=== PATIENT | female | born 1960 | race Caucasian/White ===

== ENCOUNTER 2019-04-21 08:49 | Inpatient (IN) | payer MEDICARE, OTHER, SELFPAY ==
[2019-04-18 10:53] VITALS: BMI 50.2
[2019-04-21] VITALS (20 sets, daily range): BP systolic 98–145; BP diastolic 49–102; PULSE 69–92; RESP 8–20; TEMP 36.1–37.2; O2SAT 93–100; BMI 50.1
--- NOTE | 2019-04-21 | DI.RAD.S_ITS ---
PROCEDURE: XR LUMBAR SPINE 2-3V INDICATIONS: L4-5 L5-S1 TLIF TECHNIQUE: 2 views of the lumbar spine were acquired. COMPARISON: [facility], [place], L-SPINE 2-3 VIEWS, 01/28/2014, 11:58. [facility], [place], L-SPINE 2-3 VIEWS, 03/26/2013, 18:10. FINDINGS: New pedicle screws at L4, L5, and S1. Intervertebral body spacers at L4-L5 and L5-S1. Hardware is in expected position. IMPRESSION: Satisfactory appearance of the L4-S1 pedicle screws. Dictated by: Kristian Posey M.D. on 04/21/2019 at 15:21 Approved by: Kristian Posey M.D. on 04/21/2019 at 15:27
[2019-04-21] MEDS: LACTATED RINGERS 1,000 ML 42 ML IV ×2 (10:00→13:07)
--- NOTE | 2019-04-21 10:34 | PM.PREOP ---
Pre-operative Note Interval Note History & Physical reviewed/Exam performed by Physician: Yes Changes to H&P: No
[2019-04-21] MEDS: CEFAZOLIN 2 GM/100 ML FROZ.PIGGY IV ×2 (11:10→19:08)
--- NOTE | 2019-04-21 12:00 | SUR.OPER ---
Prone on spine table, head in foam head support, padded chest and pelvic supports, gel pad at knees, and between ankles, lower legs supported by pillows; nipples, genitalia and toes free of pressure, arms secured on foam padded arm boards at <90 degrees abduction. Bed frame padded around abdominal region. Tape over blanket at thigh secured to table.
[2019-04-21] MEDS: BUPIVACAINE 0.25% W/ EPI (PF) 10 ML VIAL 30 ML INJ (12:15)
[2019-04-21] MEDS: BUPIVACAINE LIPOSOME 266 MG/20 ML VIAL INJ (12:16)
--- NOTE | 2019-04-21 15:26 | P.OP_ITS ---
Operative Date/Time/Diagnoses Date of procedure: 04/21/19 Time of procedure: 11:26 Pre-op diagnosis: 1. L4-5, L5-S1 spinal stenosis 2. L4-5, L5-S1 spondylosis with radiculopathy Post-op diagnosis: same Procedure & Clinicians Procedure: 1. L4-5, L5-S1 Postero-lateral and posterior interbody fusion 2. L4-5, L5-S1 interbody cage placement. 3. L4-5, L5-S1 decompressive laminectomy with bilateral facetecomies 4. L4-5, L5-S1 Posterior segmental instrumentation 5. [place] of bone marrow from iliac crest 6. Utilization of microsurgical technique and operating microscope Same procedure as scheduled: Yes Indications: Patient has been having chronic back pain and worsening lumbar radiculopathy. Patient failed multiple conservative management with worsening pain weakness and numbness in her lower extremity. Patient has been having difficulty performing activity of daily living. After discussing risks benefits of treatment options, patient elected proceed with surgery. Surgeon: Kristen Duron Import And Export Clerk: Melody Dc Click Yes if Unassisted: No Anesthesia Type: General Operative Notes Closure Type: primary Specimen(s): none sent Prosthetic devices, grafts, tissues, transplants, or devices: Globus revolve screws, Rise cages Applied: catheter Estimated Blood Loss (mL): 100 Blood products transfused: none Procedure in detail: Patient was seen in the preoperative area. Risks and benefits of the surgery was discussed with the patient. Informed consent was obtained from the patient and placed in the chart. Surgical site was marked. Patient was taken to the operative room. General anesthesia was administered. Prophylactic antibiotic was given to the patient less than 30 min before the incision was made. Patient was placed into a prone position on the Prasad table. Patient's back was then prepped and draped in the sterile fashion. Time- out was performed at this time. Using AP and lateral C-arm imaging the interval between L4-S1 was identified and marked on patient's back. A 2 inch incision 2 in from midline was made on the left side first. The fascia was incised in line with skin incision. Globus MARS retractors was placed inside the incision and docked onto the L4 and L5 lamina. Using microsurgical technique and operating microscope, a L4 and L5 laminectomy and L4-5 L5-S1 facetectomy was performed using a Kerrison rongeur. During the process of decompression more than 75% of bilateral L4-5 L5-S1 facets were removed in order to decompress the spinal canal and the lateral recess. The L4- 5 L5-S1 level was grossly unstable after the decompression was completed and requiring the fusion procedure. The disc space at L4-5, L5-S1 was identified. And a total diskectomy was performed at L4-5, L5-S1 level. The endplates were decorticated using a rasp and shaver. The total diskectomy and decortication was performed at L4-5, L5-S1 level in order to to accomplish a L4-5, L5-S1 fusion. The local bone from the laminectomy and facetectomy was saved for local bone grafting. After the total diskectomy and decortication was completed, Bio4 bone graft material was combined with local bone that was harvested earlier. At this time, a separate skin is incision was made over the iliac crest. A Jamshidi needle was inserted into the iliac crest through a separate skin incision. 5 cc of bone marrow aspiration was obtained through the separate skin incision using a Jamshidi needle from the iliac crest. The bone marrow aspiration was combined with local bone and the Bio4 bone grafting material. The bone grafting material was placed into the L4-5, L5-S1 interbody space along with two cages, one expandable cage at each level. The cages were expanded to their maximum height using the torque limiting screwdriver. At this time a mirror image incision was made on the right side. The fascia was incised in line with the skin incision. Globus MARS retractor was inserted and docked onto the L4-5, L5-S1 posterolateral gutter. Using the power drill, posterior-lateral decortication was performed at L4-5, L5-S1 level until bleeding cortical bone was identified. The remaining bone grafting material was placed into the L4-5 L5-S1 posterior lateral gutter he order to accomplish posterolateral fusion at the L4-5 L5-S1 levels. Using the double C-arm technique, pedicle screws were placed into the L4, L5, S1 pedicles bilaterally. This was done by placing the Jamshidi needle into the pedicles, then placing the guidewires over the Jamshidi needle, and finally placing the cannulated screws over the guidewires bilaterally. After the pedicle screws were placed, 2 titanium rods was locked into the heads of the pedicle screws using locking caps and torque limiting screwdriver. Total 6 pedicles screws were placed. After all the hardware was placed, and confirmed with AP and lateral C-arm imaging, the wound was then irrigated with sterile normal saline and packed with Ray-Nam gauze for 3 min to accomplish hemostasis. After the gauze was removed the deep fascia was closed with #1 Vicryl suture. The subcutaneous layer was closed with 2-0 Vicryl. The skin was closed with skin josefina. Patient tolerated the procedure well. There were no complications. Complications: none Post-operative Condition: stable Disposition: PACU Plan for aftercare: Admit to inpatient hospital
[2019-04-21] MEDS: HYDROMORPHONE 2 MG INJ IV ×4 (15:33→15:53)
[2019-04-21] MEDS: hydrOXYzine 50 MG/ML INJ 25 MG IM (15:38)
[2019-04-21] MEDS: HYDROMORPHONE 0.5 MG INJ IV ×3 (17:09→23:02)
[2019-04-21] MEDS: SODIUM CHLORIDE 0.9% 1,000 ML 100 ML IV (17:15)
[2019-04-21] MEDS: OXYCODONE IR 10 MG TABLET PO (18:07)
[2019-04-21] MEDS: hydrOXYzine pamoate 25 MG CAPSULE PO (19:09)
[2019-04-21] MEDS: HYDROMORPHONE 2 MG TABLET PO (20:22)
[2019-04-21] MEDS: SENNOSIDES 8.6 MG TABLET 17.2 MG PO (20:25)
[2019-04-21] MEDS: ALBUTEROL HFA 60 PUFF/8 GM INH INH (23:28)
[2019-04-21] MEDS: HYDROMORPHONE 4 MG TABLET PO (23:40)
[2019-04-22] VITALS (7 sets, daily range): BP systolic 115–155; BP diastolic 66–75; PULSE 70–93; RESP 15–18; TEMP 36.6–37.6; O2SAT 92–99
[2019-04-22] MEDS: HYDROMORPHONE 0.5 MG INJ IV ×5 (00:39→19:02)
[2019-04-22] MEDS: CEFAZOLIN 2 GM/100 ML FROZ.PIGGY IV (02:59)
[2019-04-22] MEDS: HYDROMORPHONE 4 MG TABLET PO ×5 (03:46→20:16)
[2019-04-22] MEDS: hydrOXYzine pamoate 25 MG CAPSULE PO ×3 (05:53→16:00)
[2019-04-22 06:44] LABS: Hematocrit 36.2 % (36-46); Hemoglobin 12.6 g/dL (12.0-16.0)
--- NOTE | 2019-04-22 06:44 | PC.NURSE ---
Patient has had pain control issues this night. Patient complains of pain 6-8/10. 4mg PO Dilaudid given Q4, along with 0.5 mg dilaudid Q1 PRN. Patient VSS, tachy, lung sound clear bilaterally, CMS intact. Bulky dressing on back is clean/dry/intact w/ spot of shadow drainage. Patient graves removed this morning. Pt still needs evaluation by PT. Bed is low and locked, call light within reach, SCD's applied and IS is encouraged.
[2019-04-22] MEDS: DOCUSATE 100 MG CAPSULE PO ×2 (07:50→20:17)
[2019-04-22] MEDS: PANTOPRAZOLE 20 MG TABLET PO (07:50)
[2019-04-22] MEDS: SODIUM CHLORIDE 0.9% FLUSH 10 ML IV ×3 (07:50→20:17)
[2019-04-22] MEDS: LEVOTHYROXINE 50 MCG TABLET PO (07:50)
--- NOTE | 2019-04-22 08:02 | PC.NURSE ---
Addendum entered by Sandra Macdonald R.N. 04/22/19 09:09: Patient up to bsc with one assist with belt and FWW, gait steady denies dizziness. Voided 450cc urine. Assisted back to bed. SCD's on. Original Note: Patient alert, oriented rates pain to back 7/10 given 4mg PO Dilaudid. CMS+ BLE, LS CTA.
[2019-04-22] MEDS: ACETAMINOPHEN 325 MG TABLET 650 MG PO (09:46)
--- NOTE | 2019-04-22 10:28 | PT.IIE ---
Current Diagnoses Other spondylosis with radiculopathy, lumbosacral region (04/21/19) Spinal stenosis, lumbar region without neurogenic claudication (04/21/19) Surgery Performed Operation Date: 04/21/19 11:15 Actual Procedures p L4-5, L5-S1 TLIF w/ posterior instrumentation - Kristen Duron MD Surgical History (Last Updated 04/18/19 @ 11:23 by Deann Thomas, RN) H/O: hysterectomy (Acute) History of bilateral carpal tunnel release (Acute) History of left oophorectomy (Acute) History of tonsillectomy and adenoidectomy (Acute) Hx of arthroscopy of left knee (Acute) Hx of partial thyroidectomy (Acute) S/P epidural steroid injection (Acute) Medical History (Last Updated 04/18/19 @ 12:24 by Deann Thomas RN) Asthma (Acute) Fibromyalgia (Acute) GERD (gastroesophageal reflux disease) (Acute) Hearing loss (Acute) Hypothyroidism (Acute) Meningitis spinal (Acute) Obesity, morbid, BMI 50 or higher (Acute) Pneumonia (Acute ~04/2016) Sciatica (Acute) Physical Therapy Inpatient Evaluation/Re-Eval M1 PT/OT-IP Prior Functional Status Start: 04/22/19 08:48 Freq: NEEDED Status: Active Protocol: Document 04/22/19 10:28 AW (Rec: 04/22/19 10:57 AW [id number]) Medical Review Prior Functional Status Medical History Reviewed Yes Communication WNL Mobility and Gait Pt was a limited ambulator without assistive device. She had limited standing tolerance and admits to using benites and furniture for support as needed for household mobility. Activities of Daily Living and IADL's Pt states she needed help with lower body dressing, occasional assist to wash her back in the shower, and - rarely - help with toilet hygiene. She does driving, cooking, and household tasks independently. Social History Household Members spouse Living Arrangements House Number of Floors (Floors) One Floor Number of Stairs To Enter/Railing? 1 JAVED with no railing or anything to hold on to. Doorways in the home are ADA compliant. Home Environment Standard Height Toilet,Walk in Shower Home Equipment Raised Toilet Seat Without Armrests,Senior Game Designer,Grab Bars In Shower Additional Social History Comment Pt lives with her , Robby, who is available to assist but has limitations with back and hip pain. Pt has a standard walker at home. May need FWW for home use. is planning to install a grab bar near the toilet at discharge. Pt states she sleeps in a recliner or bed but plans to sleep in the recliner at discharge until able to manage bed mobility more independently. M2 PT-IP Current Condition Start: 04/22/19 08:48 Freq: NEEDED Status: Active Protocol: Document 04/22/19 10:28 AW (Rec: 04/22/19 10:57 AW [id number]) Physical Therapy Current Condition Current Condition Evaluation Date 04/22/19 Treatment Diagnosis s/p L4-5 L5-S1 TLIF Onset Date 04/21/19 Precautions Lumbar Precautions Log Roll,No Twisting,Limit Bending,Lifting Restriction of 10 lbs,Gait Belt above Incisional Area Weight Bearing Status Weight Bearing Status Full Weight Bearing M3 PT-IP Subjective Start: 04/22/19 08:48 Freq: NEEDED Status: Active Protocol: Document 04/22/19 10:28 AW (Rec: 04/22/19 10:57 AW [id number]) Subjective Physical Therapy Visit Type Type Initial Evaluation Visit Start Time 09:54 Visit Stop Time 10:28 Total Visit Minutes 34 Notes Pt's spouse present for evaluation Physical Therapy Visit Comments Patient Comments Pt requests coordination of treatment with pain meds. At initial contact, pt reported 7 /10 pain. No change after IV dilaudid. Pt willing to work with PT anyway. Patient Goals To go home with spouse assist. Therapy Pain Assessment Pain When Pain Assessed During Mobility Pain Present Pain Present Pain Reported Location lower back Intensity 7 Scale Used 7/10 at rest; unchanged with mobility Description Sharp Pain Behaviors Facial Grimacing,Guarding, Wincing Pain Management Techniques Apply Cold,Re-positioning, Timing of Activity with Medications M4 PT-IP Mobility and Gait Start: 04/22/19 08:48 Freq: NEEDED Status: Active Protocol: Document 04/22/19 10:28 AW (Rec: 04/22/19 10:57 AW [id number]) PT-Bed Mobility Assessment Rolling Type of Rolling Log Rolling Level of Assist Moderate Assistance,1 Person Assistance Supine to Sit Supine to Sit Minimal Assistance,1 Person Assistance,Head of Bed Elevated,Bedrails Sit to Supine Sit to Supine Moderate Assistance Scooting Scooting to Edge of Bed Minimal Assistance PT-Transfer Assessment Sit to and From Stand Sit to and from Stand Standby Assistance,Moderate Assistance,1 Person Assistance ,Use of Upper Extremities Equipment Transfer Assistive Device Gait Belt,Front Wheeled Walker Orthotic/Prosthetic Devices or Brace: No Transfers Transfer Destination Bed,Toilet Transfer Technique pt ambulated with FWW Transfer Ability Level of Assist Minimal Assistance,1 Person Assistance,Use of Upper Extremities Comments Mobility Comments Pt encountered sitting up in bed with HOB elevated 70 degrees. Pt requested to attempt long sitting and then pivot hips to exit the bed instead of log roll. Pt able to achieve long sitting but required assist to move the R LE toward EOB while maintaining spinal neutral. Scoot to EOB (exiting to left) completed with min assist using therapist hand hold and walker frame to pull. Initial attempt at sit to stand from EOB required mod A x 1 with complaint of increased pain. Once up, pt ambulated to sink with FWW CGA slowly and with shuffling steps. Pt stood at sink to brush her teeth maintaining one hand on the sink for support 80% of the time. Pt then ambulated to the toilet with FWW CGA and transferred to the toilet min A x 1 and reliance on the grab bar on her left side. Pt requested assist from her to perform gordon hygeine. Against therapist instructions, pt stood from the toilet without assist and ambulated SBA back to the bed where she completed log roll for return to supine with mod A x 1 to elevate legs to the bed and complaint of increased pain. Pt was repositioned in the bed with ice packs applied , call light in reach, and at bedside. Gait Assessment Gait Gait Assistance Required: Standby Assistance,Contact Guard Assist Distance (Feet) 15 Able to Maintain Weight Bearing Status Yes During Gait Assistive Devices Assistive Device Gait Belt,Front Wheeled Walker Orthotic/Prosthetic Devices or Brace: No Gait Deviations General Gait Pattern Antalgic,Decreased Stride Length,Decreased Feet Clearance Factors Limiting Gait Function Factors Limiting Gait Function Decreased Activity Tolerance, Decreased Strength,Limited Range of Motion,Pain Comments Gait Comments Pt ambulated in room with FWW CGA and SBA. See mobility comments. Stair Climbing Assessment Comments Stair Climbing Comments Not assessed. PT-Balance Assessment Sitting Balance and Reactions Static Sitting Balance Ability Good Dynamic Sitting Balance Ability Good Standing Balance and Reactions Static Standing Balance Ability Fair Dynamic Standing Balance Ability Fair Device Used FWW M5 PT-IP Objective Assessments Start: 04/22/19 08:48 Freq: NEEDED Status: Active Protocol: Document 04/22/19 10:28 AW (Rec: 04/22/19 10:57 AW [id number]) Orientation Orientation/Cognition Level of Alertness Alert Orientation Name,Day of Week,Place, Situation Language Function Ability No Deficits Noted Safety Awareness Understands Safety Issues, Decreased Safety Awareness Memory Description No Deficits Noted Gross Range of Motion Upper Extremity ROM Assessment Bilaterally Impaired Impairments OA and carpal tunnel syndrome bilateral hands. Pt wears bilateral braces for support. Lower Extremity ROM Assessment Bilaterally Impaired Strength Upper Extremity Strength Assessment Bilaterally Impaired Shoulder 4-/5 Lower Extremity Strength Assessment Bilaterally Impaired Hip 3-/5 Knee 4-/5 Ankle 4+/5 Comments Strength Comments Pt unable to flex hips against gravity in seated position due to pain. Coordination Assessment Gross Coordination Gross Coordination WNL Sensation Assessment Sensation Gross Sensation WNL Comments Sensation Comments Mild impairment bilateral hands. No impairment noted B LE Muscle Tone Muscle Tone WNL Yes M6 PT-IP Treatment Start: 04/22/19 08:48 Freq: NEEDED Status: Active Protocol: Document 04/22/19 10:28 AW (Rec: 04/22/19 10:57 AW [id number]) Physical Therapy Treatment Education Education Provided Precautions,Weight Bearing Status,Post-Op Packet,Safety Other Treatments Other Treatment Performed Educated pt on role of PT, plan of care, post-op precautions, weight bearing status, and safe use of FWW. M7 PT-IP Assessment and Plan Start: 04/22/19 08:48 Freq: NEEDED Status: Active Protocol: Document 04/22/19 10:28 AW (Rec: 04/22/19 12:30 AW [id number]) PT Summary Assessment and Plan Potential Rehabilitation Potential Good Status of Condition at Evaluation Evolving Summary Impairments Pain,ROM,Strength,Balance,Bed Mobility,Transfers,Gait, Activity Tolerance Assessment Summary Alyssa is a 58 yo woman seen for PT evaluation on POD1 following L4-5 L5-S1 TLIF. At baseline, she is a limited ambulator without assistive device. She states she could walk short parking lot distances without support and stayed near furniture/benites at home. She required some assist with ADL's which her was able to provide. However, her has back/ hip pain which limits his ability to provide physical assist. On evaluation, pt required min to mod assist for bed mobility and transfers, CGA to SBA for gait with FWW. This therapist can not rule out the need for SNF rehab at this time, but pt may well progress enough to safely discharge home. Will continue to assess. Goals Bed Mobility Goal Standby Assistance Transfer Goal Standby Assistance,Front Wheeled Walker Gait Goal Standby Assistance,Front Wheel Walker Gait Distance 200 Other Goals up/down 1 step using FWW SBA Days to Meet Goals 10 Frequency of Treatment Frequency Of Treatment Twice a Day Treatment Plan Physical Therapy Treatment Plan Bed Mobility Training,Transfer Training,Gait Training, Therapeutic Exercise,Balance Retraining,Post Op Education, Discharge Planning,Hot or Cold Pack,Neuromuscular Re-ed, Manual Therapy Other Recommendations and Next Treatment bed mobility, gait training, Focus assess platform step if able Recommendations To Nursing Amount of Assist Needed 1 Person Assist Discharge Recommendations PT Discharge Recommendations Home with Assistance,SNF Rehab ,Outpatient PT Other Discharge Recommendations SNF rehab vs home with assist and outpatient PT depending on progress. Likely to progress enough to discharge home Equipment Needed for Home Before FWW if discharging home Discharge
--- NOTE | 2019-04-22 10:45 | CM.DPC ---
Discharge Planning/Care Management CM Discharge Assessment Start: 04/22/19 10:44 Freq: Status: Active Protocol: Document 04/22/19 10:44 ITV (Rec: 04/22/19 10:45 ITV [id number]) Discharge Planning Assessment Advance Directives? No History Provided By Medical Record Prior Living Arrangements House Household Members spouse Whiteboard Updated in Patient Room with Yes name and ext. 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 Pt has a transmitter to right ear and hearing aid to left. Patient Information Reviewed Via Phone Assessment Assessment Completed With Patient,Spouse H&P Completed Within 30 Days Yes Diagnostic Results BMP/CMP,CBC,EKG Comment Outside EKG/labs scanned to record Primary Care Provider Lisa Ramos Seen Specialist in Last 12 Months Yes Specialist Seen Orthopedist Primary Language [address] Sprinkler Required No Height 154.94 cm Weight 120.656 kg Body Mass Index (BMI) 50.2 Hearing Ability Hard of Hearing,Use of Hearing Aid,Deaf Visual Assist Glasses Dentition Type Teeth, Natural Present,Teeth, Broken Barriers to Learning Auditory Hx Anesthesia Reactions No Hx Family Anesthesia Reaction No Hx Malignant Hyperthermia No Hx Blood Transfusions No Anesthesia Review Requested No alcohol intake former Alcohol Intake Frequency Other: Stopped over 1 year ago Smoking Status Former smoker Tobacco type cigarettes how long ago did patient quit smoking Quit Apr 2004 Substance Use Type does not use Pain Present Pain Reported Musculoskeletal Symptoms Abnormal Gait,Back Pain, Difficulty Walking,Muscle Cramps,Neck Pain History of Falling (Recent or History of Yes ) Patient is completely paralyzed or No completely immobile Mental Status Oriented to own ability Is patient on oxygen? No Does patient have PERLA/SOB No Hx Sleep Apnea No Currently Taking a Beta Wytat No Can You Climb a Flight of Stairs Without No SOB Hx Chest Pain No Hx SOB No Hx Syncope or Dizziness No Anti-Coagulant Therapy No Has a Retail Sales Director No Cardiac Testing No Hx Pacemaker/ICD No Pacemaker Rep Required? No Cardiac Clearance Received Not Applicable Diet Type At Home Regular dysphagia No Bladder Pattern Frequency Urinary Catheter Present No Hx Urinary Self Catheterization No Diabetes No Patient No Lactating No Hx Drug Resistant Organism No Presence of External or Internal Medical Yes: Hearing aids Devices Have you traveled outside the [place] in the last 30 days? Marital Status Lives With spouse Prior Living Arrangements House Number of Floors (Floors) One Floor Support System Spouse Does the Patient Have Assistance After Yes Surgery Patient Discharge Plan Description Return Home Comment Pt advised 2-3 day length of stay per surgeon Feels Safe in Current Environment Yes Been Physically Hurt or Threatened By a No Person in Current Environment Do you have thoughts of harming yourself None or others? Are you currently considering suicide? No Do you have a plan to hurt yourself or No Plan others? Do You Have Any Spiritual Beliefs That No May Affect Your HC Choices? Do You Have Any Cultural Practices That No May Affect Your HC Choices? Comment Voodoo Who Can We Speak to About Patient's Care Family, friends Identifying Code for Release of Patient Declines to issue Information Health Care Proxy/Next of Kin Robby () Health Care Proxy Emergency Contact Name Robby () Emergency Contact Advance Directives? No: Currently working on Power of Hypoid Gear Generator No: Currently working on PAC Instructions Durable medical equipment, Medications to take/avoid, Nasal antibiotic,No ETOH/ petroleum product on skin DOS, NPO,Post-op transportation,Pre -surgical wash,Sturdy shoes/ comfortable clothes,Do not bring valuables and remove jewelry
--- NOTE | 2019-04-22 11:19 | PM.PNPO.1 ---
Subjective Subjective Date Patient Seen: 04/22/19 Time Patient Seen: 11:19 Interval history: POD 1 s/p TLIF with Dr. Duron. Patient is complaining of significant pain in lower back that radiates to buttocks b/l, 10/10 with activity and having difficulty sleeping. Pain is being managed with dilaudid PO/IV, tylenol and vistaril. She denies numbness, tingling, urinary/bowel incontinence. She has not mobilized with PT. denies fever, chills, chest pain, shortness of breath, pain in calves. Exam Vital Signs (past 8 hours): - 04/22/19 04:00 04/22/19 08:00 04/22/19 08:42 Temperature 98.6 F 99.7 F H Pulse Rate 83 80 Respiratory Rate 16 17 Blood Pressure 135/70 118/66 Pulse Oximetry 96 92 96 04/22/19 08:53 Temperature Pulse Rate Respiratory Rate Blood Pressure Pulse Oximetry 94 Oxygen Delivery Method Nasal Cannula Oxygen Flow Rate 0 Narrative Exam Narrative: 58 year old female is laying comfortably in bed, in no apparent distress. A&Ox3. Dressing CDI, SCDs in place. Sensory function grossly intact to light touch in LE bl. Capillary refill <2sec LE bl. Dorsalis pedis 2+ bl. Able to actively dorsiflx/plantar flex bl. Objective Labs Result Diagrams: 04/22/19 05:40 Labs: Laboratory Results - last 24 hr 04/22/19 05:40 Hgb 12.6 Hct 36.2 Assessment & Plan Post-op Postoperative Procedures: Procedures Operation Date: 04/21/19 11:15 Actual Procedures Side Surgeon p L4-5, L5-S1 TLIF w/ posterior instrumentation Kristen Duron MD Postoperative status: marginal pain control Postoperative plan: see orders Postoperative plan narrative: Decadron PO for pain management, continue dilaudid, tylenol and vistaril Mobilize with PT Continue SCDs Possible discharge home in next 24-48 hours Time Spent With Patient Time with patient: less than 15 minutes
--- NOTE | 2019-04-22 11:20 | CM.DANOTE ---
Discharge Planning/Care Management DCP: assessment: Case received, EMR reviewed and met with pt and her Robby. Introduced self and role. Pt is a 58 year old female who admitted yesterday for a planned spinal surgery. Surgeon: Dr. Duron PCP: Lisa Ramos. Payer: Medicare and [employer] PT and OT are ordered and pt did have a therapy session this morning (no notes for this are yet available). Pt and Robby state they are planning for her to go to the home setting but are willing to consider a snf setting IF Plan B is needed. Pt has applied technologist with snfs beyond visiting. SNF choice list: discussed: decision: [facility]: referral: to September who will review and anticipates acceptance if need be. Pt currently is having a great deal of pain and says it is hard to get comfortable in the bed. She plans to sleep in a recliner at home in order to adhere to her spinal no twist precautions. Pt's does confirm that he has a bad back but he is very willing to help pt and he agrees with pt that she will be better off at home if at all possible. P: home vs [facility]: if snf: [facility] will be needed. CM Discharge Assessment Start: 04/22/19 10:44 Freq: Status: Active Protocol: Document 04/22/19 10:44 ITV (Rec: 04/22/19 10:45 ITV [id number]) Discharge Planning Assessment Advance Directives? No History Provided By Medical Record Prior Living Arrangements House Household Members spouse Whiteboard Updated in Patient Room with Yes name and ext. 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 Pt has a transmitter to right ear and hearing aid to left. Patient Information Reviewed Via Phone Assessment Assessment Completed With Patient,Spouse H&P Completed Within 30 Days Yes Diagnostic Results BMP/CMP,CBC,EKG Comment Outside EKG/labs scanned to record Primary Care Provider Lisa Ramos Seen Specialist in Last 12 Months Yes Specialist Seen Orthopedist Primary Language Welsh Chimney Repairer Required No Height 154.94 cm Weight 120.656 kg Body Mass Index (BMI) 50.2 Hearing Ability Hard of Hearing,Use of Hearing Aid,Deaf Visual Assist Glasses Dentition Type Teeth, Natural Present,Teeth, Broken Barriers to Learning Auditory Hx Anesthesia Reactions No Hx Family Anesthesia Reaction No Hx Malignant Hyperthermia No Hx Blood Transfusions No Anesthesia Review Requested No alcohol intake former Alcohol Intake Frequency Other: Stopped over 1 year ago Smoking Status Former smoker Tobacco type cigarettes how long ago did patient quit smoking Quit Apr 2004 Substance Use Type does not use Pain Present Pain Reported Musculoskeletal Symptoms Abnormal Gait,Back Pain, Difficulty Walking,Muscle Cramps,Neck Pain History of Falling (Recent or History of Yes ) Patient is completely paralyzed or No completely immobile Mental Status Oriented to own ability Is patient on oxygen? No Does patient have PERLA/SOB No Hx Sleep Apnea No Currently Taking a Beta [place] No Can You Climb a Flight of Stairs Without No SOB Hx Chest Pain No Hx SOB No Hx Syncope or Dizziness No Anti-Coagulant Therapy No Has a Advertising Copywriter No Cardiac Testing No Hx Pacemaker/ICD No Pacemaker Rep Required? No Cardiac Clearance Received Not Applicable Diet Type At Home Regular dysphagia No Bladder Pattern Frequency Urinary Catheter Present No Hx Urinary Self Catheterization No Diabetes No Patient No Lactating No Hx Drug Resistant Organism No Presence of External or Internal Medical Yes: Hearing aids Devices Have you traveled outside the [facility] States in the last 30 days? Marital Status Lives With spouse Prior Living Arrangements House Number of Floors (Floors) One Floor Support System Spouse Does the Patient Have Assistance After Yes Surgery Patient Discharge Plan Description Return Home Comment Pt advised 2-3 day length of stay per surgeon Feels Safe in Current Environment Yes Been Physically Hurt or Threatened By a No Person in Current Environment Do you have thoughts of harming yourself None or others? Are you currently considering suicide? No Do you have a plan to hurt yourself or No Plan others? Do You Have Any Spiritual Beliefs That No May Affect Your HC Choices? Do You Have Any Cultural Practices That No May Affect Your HC Choices? Comment Episcopal Who Can We Speak to About Patient's Care Family, friends Identifying Code for Release of Patient Declines to issue Information Health Care Proxy/Next of Kin Robby () Health Care Proxy Emergency Contact Name Robby () Emergency Contact Advance Directives? No: Currently working on Power of Cotton Machine Operator No: Currently working on PAC Instructions Durable medical equipment, Medications to take/avoid, Nasal antibiotic,No ETOH/ petroleum product on skin DOS, NPO,Post-op transportation,Pre -surgical wash,Sturdy shoes/ comfortable clothes,Do not bring valuables and remove jewelry
[2019-04-22] MEDS: dexAMETHasone 1 MG TABLET PO (12:01)
--- NOTE | 2019-04-22 13:53 | OT.IP.EVAL ---
Current Diagnoses Other spondylosis with radiculopathy, lumbosacral region (04/21/19) Spinal stenosis, lumbar region without neurogenic claudication (04/21/19) Surgery Performed Operation Date: 04/21/19 11:15 Actual Procedures p L4-5, L5-S1 TLIF w/ posterior instrumentation - Kristen Duron MD Past Medical History (Last Updated 04/18/19 @ 12:24 by Deann Thomas, RN) Asthma (Acute) Fibromyalgia (Acute) GERD (gastroesophageal reflux disease) (Acute) Hearing loss (Acute) Hypothyroidism (Acute) Meningitis spinal (Acute) Obesity, morbid, BMI 50 or higher (Acute) Pneumonia (Acute ~04/2016) Sciatica (Acute) Surgical History (Last Updated 04/18/19 @ 11:23 by Deann Thomas RN) H/O: hysterectomy (Acute) History of bilateral carpal tunnel release (Acute) History of left oophorectomy (Acute) History of tonsillectomy and adenoidectomy (Acute) Hx of arthroscopy of left knee (Acute) Hx of partial thyroidectomy (Acute) S/P epidural steroid injection (Acute) Occupational Therapy Inpatient Evaluation/Re-Eval M1 PT/OT-IP Prior Functional Status Start: 04/22/19 08:48 Freq: NEEDED Status: Active Protocol: Document 04/22/19 13:53 ALEE (Rec: 04/22/19 14:27 ALEE [id number]) Medical Review Prior Functional Status Medical History Reviewed Yes Diet/Fluid Consistency Regular Communication WNL Mobility and Gait Pt was a limited ambulator without assistive device. She had limited standing tolerance and admits to using benites and furniture for support as needed for household mobility due to low back pain. Activities of Daily Living and IADL's Pt states she needed help with lower body dressing, occasional assist to wash her back in the shower, and - rarely - help with toilet hygiene. She does driving, cooking, and household tasks independently. Prior Functional Level (Other details) Supportive can provide 24 hr assist after d/c. Social History Household Members spouse Living Arrangements House Number of Floors (Floors) One Floor Number of Stairs To Enter/Railing? one step to enter Home Environment Standard Height Toilet,Walk in Shower,Built-In Shower Seat Home Equipment Long Handled Sponge,Long Handled Shoe Horn,Rn Palliative,Grab Bars In Shower Employment Status Retired Additional Social History Comment Pt's has back pain and scheduled to have back surgery in September 2019 per pt. M2 OT-IP Current Condition Start: 04/22/19 08:59 Freq: Status: Active Protocol: Document 04/22/19 13:53 PJM (Rec: 04/22/19 14:27 PJ [id number]) Occupational Therapy Current Condition Current Condition Evaluation Date 04/22/19 Treatment Diagnosis decreased self care, functional mobility s/p L4-5, L5-S1 TLIF Diagnosis Onset Date 04/21/19 Post Operative Precautions Lumbar Precautions Log Roll,No Twisting,Limit Bending,Lifting Restriction of 10 lbs,Gait Belt above Incisional Area M3 OT- IP Subjective and Pain Start: 04/22/19 08:59 Freq: Status: Active Protocol: Document 04/22/19 13:53 PJM (Rec: 04/22/19 14:27 PJ [id number]) OT- Subjective Occupational Therapy Visit Type Type Initial Evaluation Visit Start Time 13:06 Visit Stop Time 13:53 Total Visit Minutes 47 Notes not here for education this session. Occupational Therapy Visit Comments Patient Comments I did not expect the pain to be this bad. Patient/Caregiver Goals to be able to garden, ride her bike and resume volunteer work at [employer] OT Pain Assessment Pain When Pain Assessed At Rest Pain Present Pain Present Pain Reported Location lower back Intensity 7 Scale Used Numeric (1 - 10) Description Aching,Sharp Pain Behaviors Facial Grimacing,Guarding Management Techniques Distraction,Timing of Activity with Medications M4 OT- IP ADL's Start: 04/22/19 08:59 Freq: Status: Active Protocol: Document 04/22/19 13:53 PJM (Rec: 04/22/19 14:27 [facility] [id number]) OT [id number] General Evaluation Self-Feeding Ability Independent OT ADL-Grooming General Evaluation Grooming Ability Standby Assistance Areas Needing Assistance Retrieving/Set-up of Grooming Items,Face Washing Comments OT Grooming Comments in bed OT ADL-Oral Care General Eval Oral Care Ability Standby Assistance Areas of Assistance Retrieving/Set-Up of Items Devices Oral Care Devices Toothbrush Comments Oral Care Comments in bed OT ADL-Dressing General Eval Areas Needing Assistance Underpants/Brief,Socks,Shoes Comments OT Dressing Comments Pt states she rarely wears socks; wears flip flops most of wear and slip on slippers at home. Pt has long shoe horn. Recommend technician chemical cleaning for donning and doffing pants. OT ADL-Toileting General Evaluation Toileting Ability Total Assistance Comments OT Toileting Comments Pt has been asking for nursing assist with gordon care due to pain level. Provided education re: toilet paper aids and resources for obtaining one. OT ADL-Bathing Bathing Type Bathing Type Shower Comments OT Bathing Comments Provided education re: body mechanics; to assist PRN at home per pt. to obtain shower seat as built in seat in shower is too low. M5 OT- IP IADL's Start: 04/22/19 08:59 Freq: Status: Active Protocol: Document 04/22/19 13:53 PJM (Rec: 04/22/19 14:27 [facility] [id number]) OT-Instrumental Activities of Daily Living Deficits IADL Deficits Identified Deficits Home Safety Awareness Awareness of Need for Assistance at Home Good Awareness Ability to Problem Solve Emergency Able to Problem Solve Situations Home Safety Comments can assist PRN at home with all IADLS until pt able. Medication Management Medication Management No Deficits Identified Money Management Money Management No Deficits Identified Meal Preparation Meal Preparation Caregiver Provides Assist Donkey Ride Operator Donkey Ride Operator Caregiver Provides Assist Driving Driving Caregiver Provides Assist M6 OT- IP Functional Cognition Start: 04/22/19 08:59 Freq: Status: Active Protocol: Document 04/22/19 13:53 PJM (Rec: 04/22/19 14:27 [facility] [id number]) Cognitive Factors Limiting Selfcare Function Cognitive Ability Level of Alertness Alert Patient Orientation Name,Age,Birthday,Month,Date, Year,Day of Week,Place, Situation Attention Span Ability Capable of Focused Attention, Capable of Sustained Attention Ability to Follow Commands Able to Follow One Step Commands Memory Description No Deficits Noted Safety Awareness No Deficits Noted Problem Solving Ability Needs Assist to Identify Solutions OT- Vision and Hearing OT- Hearing Assessment OT- Hearing Assessment WFL OT- Vision Assessment Visual Acuity WFL,Glasses All The Time M7 OT- IP Mobility and Balance Start: 04/22/19 08:59 Freq: Status: Active Protocol: Document 04/22/19 13:53 PJM (Rec: 04/22/19 14:27 [facility] [id number]) OT-Transfer Assessment Comments Mobility Comments Pt declined OOB this session as she just got back to bed after using bathroom. OT- Gait Assessment Comments Gait Ability Comments see P.T. notes OT- Balance Assessment Comments Other Balance Tests/Deviations/Treatment see P.T. notes : M8 OT- IP Objective Assessments Start: 04/22/19 08:59 Freq: Status: Active Protocol: Document 04/22/19 13:53 PJM (Rec: 04/22/19 14:27 PJM [id number]) OT Gross Range of Motion Upper Extremity Range of Motion Assessment Within Functional Limits OT Strength Upper Extremity Strength Assessment Within Functional Limits Comments Strength Comments Pt has B hand CMC arthritis and wears B thumb splints for this. OT- Coordination Assessment Comments Coordination Comments BUE WFL OT-Muscle Tone Assessment Muscle Tone WNL Yes OT Sensation Assessment Comments Summary Comments Pt denies deficits in BUE's Edema Edema Absent M9 OT- IP Assessment and Plan Start: 04/22/19 08:59 Freq: Status: Active Protocol: Document 04/22/19 13:53 PJM (Rec: 04/22/19 14:27 PJM [id number]) OT Summary Assessment and Plan Potential Rehabilitation Potential Good Summary OT Impairments Pain,Functional Mobility, Grooming,Dressing,Toileting, Bathing,Toilet Transfers, Shower Transfers Assessment Summary Low complexity OT assessement completed on this 58 yr old female admitted for elective L4-5, L5-S1 TLIF. Pt presents with performance deficits in all functional mobility/ transfers, standing grooming, lower body dressing, bathing and toileting due to post surgical pain. Began education re: lumbar spine precautions, adapted ADL techniques and bathroom safety equipment options. Plan 1-2 additional OT visits to address the goals below. Anticipate pt will d/c home with 24 hr assist from when medically stable and clears P.T. Goals Grooming Goal Independent Dressing Goal Independent,Rn Palliative Toileting Goal Independent,Toilet Paper Aid Bathing Goal Standby Assistance,Grab Bars, Hand Held Shower Sprayer Toilet Transfer Goal Independent,Bedside Commode Shower Transfer Goal Standby Assistance Patient/Caregiver Education Goal Demonstrate Post-Op Precautions,Caregiver Independent Assisting Patient OT-Other Goals Grooming to be done standing at sink with good body mechanics. Pt plans to use BSC over toilet at home Days to Meet Goals 2 Frequency of Treatment Frequency Of Treatment Once a Day Treatment Plan OT Treatment Plan ADL Training,Functional Mobility,Patient/Family Education,Discharge Planning Discharge Recommendations OT Discharge Recommendations Home with 24/ Assist Home Equipment Needs shower seat, BSC, toilet paper aid
--- NOTE | 2019-04-22 14:43 | PT.IPTN ---
Current Diagnoses Other spondylosis with radiculopathy, lumbosacral region (04/21/19) Spinal stenosis, lumbar region without neurogenic claudication (04/21/19) Surgery Performed Operation Date: 04/21/19 11:15 Actual Procedures p L4-5, L5-S1 TLIF w/ posterior instrumentation - Kristen Duron MD Physical Therapy Treatment Note M2 PT-IP Current Condition Start: 04/22/19 08:48 Freq: NEEDED Status: Active Protocol: Document 04/22/19 10:28 AW (Rec: 04/22/19 10:57 AW [id number]) Physical Therapy Current Condition Current Condition Evaluation Date 04/22/19 Treatment Diagnosis s/p L4-5 L5-S1 TLIF Onset Date 04/21/19 Precautions Lumbar Precautions Log Roll,No Twisting,Limit Bending,Lifting Restriction of 10 lbs,Gait Belt above Incisional Area Weight Bearing Status Weight Bearing Status Full Weight Bearing M3 PT-IP Subjective Start: 04/22/19 08:48 Freq: NEEDED Status: Active Protocol: Document 04/22/19 14:47 AW (Rec: 04/22/19 15:13 AW [id number]) Subjective Physical Therapy Visit Type Type Treatment Note Visit Start Time 14:18 Visit Stop Time 14:43 Total Visit Minutes 25 Physical Therapy Visit Comments Patient Comments I just got comfortable but I guess I can get up anyway. Therapy Pain Assessment Pain When Pain Assessed At Rest Pain Present Pain Present Reassessed Location lower back Intensity 6 Scale Used 6/10 at rest; 7/10 during transitions Description Sharp Pain Management Techniques Apply Cold,Re-positioning, Timing of Activity with Medications M4 PT-IP Mobility and Gait Start: 04/22/19 08:48 Freq: NEEDED Status: Active Protocol: Document 04/22/19 14:47 AW (Rec: 04/22/19 15:13 AW [id number]) PT-Bed Mobility Assessment Rolling Type of Rolling Log Rolling Level of Assist Minimal Assistance,1 Person Assistance Supine to Sit Supine to Sit Minimal Assistance,1 Person Assistance,Head of Bed Elevated,Bedrails Sit to Supine Sit to Supine Minimal Assistance,1 Person Assistance Scooting Scooting to Edge of Bed Minimal Assistance PT-Transfer Assessment Sit to and From Stand Sit to and from Stand Contact Guard Assistance,1 Person Assistance,Use of Upper Extremities Equipment Transfer Assistive Device Gait Belt,Front Wheeled Walker Orthotic/Prosthetic Devices or Brace: No Transfers Transfer Destination Bed,Toilet Transfer Technique pt ambulated with FWW Transfer Ability Level of Assist Contact Guard Assistance,1 Person Assistance,Use of Upper Extremities Comments Mobility Comments Pt exited the bed to her left requiring min A x 1 to pull to sitting and min A to scoot toward EOB. Using B UE to push off the bed for standing increased pt's pain but she managed to complete sit to stand with FWW CGA from bed in lowest position. After gait training, pt ambulated to the toilet using FWW SBA/CGA and transferred with heavy reliance on the grab bar SBA. She returned to the bed with log roll technique for sit to supine requiring min A to lift her legs. Pt complained of increased pain during all transitional movements and became tearful with pain upon return to bed. Gait Assessment Gait Gait Assistance Required: Standby Assistance,Contact Guard Assist Distance (Feet) 60 Able to Maintain Weight Bearing Status Yes During Gait Gait Deviations General Gait Pattern Antalgic,Decreased Stride Length,Decreased Feet Clearance Factors Limiting Gait Function Factors Limiting Gait Function Decreased Activity Tolerance, Decreased Strength,Limited Range of Motion,Pain Comments Gait Comments Pt ambulated from the room and into the hallway using FWW SBA to CGA at most. her pace was slow and she has reduced foot clearance bilaterally, but she was safe with FWW. Stair Climbing Assessment Comments Stair Climbing Comments Not assessed. PT-Balance Assessment Sitting Balance and Reactions Static Sitting Balance Ability Good Dynamic Sitting Balance Ability Good Standing Balance and Reactions Static Standing Balance Ability Fair Dynamic Standing Balance Ability Fair Device Used FWW M5 PT-IP Objective Assessments Start: 04/22/19 08:48 Freq: NEEDED Status: Active Protocol: Document 04/22/19 10:28 AW (Rec: 04/22/19 10:57 AW [id number]) Orientation Orientation/Cognition Level of Alertness Alert Orientation Name,Day of Week,Place, Situation Language Function Ability No Deficits Noted Safety Awareness Understands Safety Issues, Decreased Safety Awareness Memory Description No Deficits Noted Gross Range of Motion Upper Extremity ROM Assessment Bilaterally Impaired Impairments OA and carpal tunnel syndrome bilateral hands. Pt wears bilateral braces for support. Lower Extremity ROM Assessment Bilaterally Impaired Strength Upper Extremity Strength Assessment Bilaterally Impaired Shoulder 4-/5 Lower Extremity Strength Assessment Bilaterally Impaired Hip 3-/5 Knee 4-/5 Ankle 4+/5 Comments Strength Comments Pt unable to flex hips against gravity in seated position due to pain. Coordination Assessment Gross Coordination Gross Coordination WNL Sensation Assessment Sensation Gross Sensation WNL Comments Sensation Comments Mild impairment bilateral hands. No impairment noted B LE Muscle Tone Muscle Tone WNL Yes M6 PT-IP Treatment Start: 04/22/19 08:48 Freq: NEEDED Status: Active Protocol: Document 04/22/19 14:47 AW (Rec: 04/22/19 15:13 AW [id number]) Physical Therapy Treatment Education Education Provided Precautions,Weight Bearing Status,Safety Other Treatments Other Treatment Performed Reviewed spinal surgery precautions and cued pt occasionally to avoid looking over her shoulder to limit rotation. M7 PT-IP Assessment and Plan Start: 04/22/19 08:48 Freq: NEEDED Status: Active Protocol: Document 04/22/19 14:47 AW (Rec: 04/22/19 15:13 AW [id number]) PT Summary Assessment and Plan Summary Impairments Pain,ROM,Strength,Balance,Bed Mobility,Transfers,Gait, Activity Tolerance Assessment Summary Alyssa required reduced level of assist for some mobilities with her primary limitation being pain. This PT still can not rule out the need for SNF rehab, but pt's spouse is preparing their home with grab bar near the toilet and BSC to ease her return home, if possible. She continues to require more assist than her can likely provide. Will continue to assess. Goals Bed Mobility Goal Standby Assistance Transfer Goal Standby Assistance,Front Wheeled Walker Gait Goal Standby Assistance,Front Wheel Walker Gait Distance 200 Other Goals up/down 1 step using FWW SBA Days to Meet Goals 10 Frequency of Treatment Frequency Of Treatment Twice a Day Treatment Plan Physical Therapy Treatment Plan Bed Mobility Training,Transfer Training,Gait Training, Therapeutic Exercise,Balance Retraining,Post Op Education, Discharge Planning,Hot or Cold Pack,Neuromuscular Re-ed, Manual Therapy Other Recommendations and Next Treatment bed mobility, gait training, Focus assess platform step if able, caregiver training Recommendations To Nursing Amount of Assist Needed 1 Person Assist Discharge Recommendations PT Discharge Recommendations Home with Assistance,SNF Rehab ,Outpatient PT Other Discharge Recommendations SNF rehab vs home with assist and outpatient PT depending on progress. Likely to progress enough to discharge home Equipment Needed for Home Before FWW if discharging home Discharge
[2019-04-22] MEDS: SENNOSIDES 8.6 MG TABLET 17.2 MG PO (20:17)
[2019-04-23] MEDS: HYDROMORPHONE 4 MG TABLET PO ×5 (00:17→16:00)
[2019-04-23 00:30] VITALS: BP 149/79; PULSE 86; RESP 14; TEMP 36.9; O2SAT 96
[2019-04-23] MEDS: HYDROMORPHONE 0.5 MG INJ IV (03:26)
[2019-04-23] MEDS: SODIUM CHLORIDE 0.9% FLUSH 10 ML IV ×2 (03:27→08:30)
[2019-04-23 04:00] VITALS: BP 141/78; PULSE 84; RESP 14; TEMP 37.1; O2SAT 93
[2019-04-23] MEDS: hydrOXYzine pamoate 25 MG CAPSULE PO ×3 (04:04→12:27)
--- NOTE | 2019-04-23 07:49 | PM.PNPO.1 ---
Subjective Subjective Date Patient Seen: 04/23/19 Time Patient Seen: 07:49 Interval history: POD #2 s/p TLIF with Dr. Durno. Patient had difficulty controlling pain last night. She is taking Dilaudid 4 mg every 3 hours, and required IV Dilaudid for breakthrough pain. She complains of significant pain down the back of her legs. She is slow to mobilize with physical therapy. She lives at home with her . She is voiding without difficulty or assistance. Exam Vital Signs (past 8 hours): - 04/23/19 00:30 04/23/19 04:00 Temperature 98.4 F 98.8 F Pulse Rate 86 84 Respiratory Rate 14 14 Blood Pressure 149/79 H 141/78 H Pulse Oximetry 96 93 Oxygen Delivery Method Nasal Cannula Oxygen Flow Rate 2 Narrative Exam Narrative: Patient lying in bed in no acute distress. She is alert oriented x3. Calves are soft, compressible, nontender bilaterally. Sensation intact light touch throughout bilateral lower extremities. She is able to actively dorsiflex plantar flex. Pulses are symmetrical. Objective Labs Result Diagrams: 04/22/19 05:40 Assessment & Plan Post-op Postoperative Procedures: Procedures Operation Date: 04/21/19 11:15 Actual Procedures Side Surgeon p L4-5, L5-S1 TLIF w/ posterior instrumentation Kristen Duron MD Patient will continue mobilize with physical therapy today no excessive bending, lifting, or twisting. Will change dressing today. We'll do 10 mg Decadron now, and 4 mg every 6 hours for 24 hour steroid burst. Continue Dilaudid, and Vistaril for pain control. If patient mobilizing safely, with adequate pain control she can go home tonight.
[2019-04-23 07:50] VITALS: BP 127/75; PULSE 79; RESP 18; TEMP 36.7; O2SAT 97
[2019-04-23] MEDS: DOCUSATE 100 MG CAPSULE PO (08:27)
[2019-04-23] MEDS: PANTOPRAZOLE 20 MG TABLET PO (08:28)
[2019-04-23] MEDS: LEVOTHYROXINE 50 MCG TABLET PO (08:28)
[2019-04-23] MEDS: DEXAMETHASONE 10 MG/ML VIAL IV (08:29)
[2019-04-23 09:38] VITALS: O2SAT 97
--- NOTE | 2019-04-23 10:48 | OT.IP.TRT ---
Current Diagnoses Other spondylosis with radiculopathy, lumbosacral region (04/21/19) Spinal stenosis, lumbar region without neurogenic claudication (04/21/19) Surgery Performed Operation Date: 04/21/19 11:15 Actual Procedures p L4-5, L5-S1 TLIF w/ posterior instrumentation - Kristen Duron MD Occupational Therapy Treatment Note M3 OT- IP Subjective and Pain Start: 04/22/19 08:59 Freq: Status: Active Protocol: Document 04/23/19 10:48 PJM (Rec: 04/23/19 16:06 PJM [id number]) OT- Subjective Occupational Therapy Visit Type Type Treatment Note Visit Start Time 10:10 Visit Stop Time 10:48 Total Visit Minutes 38 Notes Pt's here for education this session. Occupational Therapy Visit Comments Patient Comments It really hurts when I move around. Patient/Caregiver Goals to have less pain and go home, be able to garden, ride her bike, do volunteer work at [email or web address] OT Pain Assessment Pain When Pain Assessed After Treatment Pain Present Pain Present Pain Reported Location bilateral legs Intensity 7 Scale Used Numeric (1 - 10) Description Aching,Acute Pain Behaviors Facial Grimacing,Guarding, Wincing Management Techniques Distraction,Re-positioning, Timing of Activity with Medications M4 OT- IP ADL's Start: 04/22/19 08:59 Freq: Status: Active Protocol: Document 04/23/19 10:48 PJM (Rec: 04/23/19 16:06 PJM [email or web address]) OT ADL-Dressing Comments OT Dressing Comments Pt declined to practice dressing today but education provided re: technique and goat herder provided. states he can assist pt with lower body dressing PRN at home. Pt states she never wears socks and declines sock aid. She wears slip on shoes. OT ADL-Toileting General Evaluation Toileting Ability Total Assistance Areas Needing Assistance Perform Perineal Hygiene Comments OT Toileting Comments Pt declines to wear underwear or brief. Declines to attempt gordon care due to pain level. completed gordon care for pt after urination. Provided education to pt/ re: body mechanics for gordon care and use of toilet paper aid and resources for obtaining one. OT ADL-Bathing Comments OT Bathing Comments Pt declines to shower here. Provided education to re: methids to keep incision dry and body mechanics. Pt has long bath sponge. M7 OT- IP Mobility and Balance Start: 04/22/19 08:59 Freq: Status: Active Protocol: Document 04/23/19 10:48 PJM (Rec: 04/23/19 16:06 PJM [email or web address]) OT- Bed Mobility Assessment Rolling Type of Rolling Roll to Right Level of Assistance Contact Guard Assistance,1 Person Assistance Sit to Supine Sit to Supine Assist Moderate Assistance,1 Person Assistance Scooting Scooting to Edge of Bed Standby Assistance OT-Transfer Assessment Sit to and From Stand Sit to and from Stand Contact Guard Assistance Transfers Transfer Ability Standby Assistance Technique Transfer Destination Bed,Toilet Transfer Technique Stand Step Pivot Devices Transfer Assistive Devices Gait Belt,Front Wheeled Walker Comments Mobility Comments able to assist pt with supine to EOB by assisting with BLE's. Pt needs min cues for log rolling technique. OT- Gait Assessment Gait Gait Assistance Required: Standby Assistance Distance (Feet) 20 Assistive Devices Assistive Device Gait Belt,Front Wheeled Walker Comments Gait Ability Comments to and from bathroom OT- Balance Assessment Sitting Balance and Reactions Static Sitting Balance Ability Good Dynamic Sitting Balance Ability Good Standing Balance and Reactions Static Standing Balance Ability Good Dynamic Standing Balance Ability Good M9 OT- IP Assessment and Plan Start: 04/22/19 08:59 Freq: Status: Active Protocol: Document 04/23/19 10:48 PJM (Rec: 04/23/19 16:06 PJM [email or web address]) OT Summary Assessment and Plan Potential Rehabilitation Potential Good Summary OT Impairments Pain,Functional Mobility Progress Towards Goals Slow Progress due to Pain,Safe For Discharge Assessment Summary Pt's today and further education provided to pt/ re: lumbar spine precautions, body mechanics, adapted ADL techniques, equipment resources and car transfers. has obtained shower seat and BSC for use over toilet at home. He will order toilet paper aid for pt. Hide And Skin Processing Worker provided for lower body dressing, although pt declined to practice with it today. able to safely assist pt with EOB to supine this session. Pt moves well with FWW and is CGA to SBA for sit to stand from chair, ambulation to bathroom and toilet transfers. Pt self limiting participation in self care tasks today due to pain level with decreased strategies for coping with pain noted. If pt still here tomorrow, plan one additional visit to practice adapted ADL techniques.Supportive will provide 24 hr assist at d/c PRN. Goals Days to Meet Goals 1 Frequency of Treatment Frequency Of Treatment Once a Day Treatment Plan OT Treatment Plan ADL Training,Functional Mobility,Patient/Family Education,Discharge Planning Discharge Recommendations OT Discharge Recommendations Home with 24/ Assist
--- NOTE | 2019-04-23 11:29 | CM.DPC ---
Addendum entered by Dianna Lizarraga R.N. 04/23/19 14:03: Had conversation with patient and spouse. Discussed what home health could do, and not do. She stated, she does not think that she will need home health, and still wishes to go home. Patient stated, she now feels that her pain is better managed, but wants to stay on top of it. is supportive, of her going home as well. Do have discharge orders, and will depend upon how she does with P.T. this afternoon. She will continue to do stair training. Original Note: DCP Cont: Spoke to Dave Lynch. He stated, patient does not want to go to skilled, wants home. He had asked if patient could get home health. With fusions, is questionable, called [facility], and spoke to Eliana in triage. Stated, normally with fusions, P.T. can't do any strengthening, only can walk with patient. Attempted to meet with patient, but sleeping. Nurse, Selene, stated she is resting, please don't disturb her. is supportive. At this point, home health may not be beneficial for patient since they can't yet work on with strengthening, can discuss tomorrow with ortho or PAC. P: DCP to continue to follow closely and discuss with orth. At this time, patient wants to go home. Dianna Lizarraga, SINDY/Car Seat Coverer
--- NOTE | 2019-04-23 12:44 | PT.IPTN ---
Current Diagnoses Other spondylosis with radiculopathy, lumbosacral region (04/21/19) Spinal stenosis, lumbar region without neurogenic claudication (04/21/19) Surgery Performed Operation Date: 04/21/19 11:15 Actual Procedures p L4-5, L5-S1 TLIF w/ posterior instrumentation - Kristen Duron MD Physical Therapy Treatment Note M2 PT-IP Current Condition Start: 04/22/19 08:48 Freq: NEEDED Status: Active Protocol: Document 04/22/19 10:28 AW (Rec: 04/22/19 10:57 AW [id number]) Physical Therapy Current Condition Current Condition Evaluation Date 04/22/19 Treatment Diagnosis s/p L4-5 L5-S1 TLIF Onset Date 04/21/19 Precautions Lumbar Precautions Log Roll,No Twisting,Limit Bending,Lifting Restriction of 10 lbs,Gait Belt above Incisional Area Weight Bearing Status Weight Bearing Status Full Weight Bearing M3 PT-IP Subjective Start: 04/22/19 08:48 Freq: NEEDED Status: Active Protocol: Document 04/23/19 09:10 HH (Rec: 04/23/19 12:44 [id number]) Subjective Physical Therapy Visit Type Type Treatment Note Visit Start Time 09:10 Visit Stop Time 09:40 Total Visit Minutes 30 Notes Pt's spouse present for evaluation Number of EDUCATIONAL PSYCHOLOGIST Visits 0 Physical Therapy Visit Comments Patient Comments Pt agreeable to mobilize with PT Therapy Pain Assessment Pain When Pain Assessed At Rest Pain Present Pain Present Pain Reported Location lower back Intensity 6 Scale Used 6/10 at rest; 7/10 during transitions Description Sharp Pain Management Techniques Apply Cold,Re-positioning, Timing of Activity with Medications M4 PT-IP Mobility and Gait Start: 04/22/19 08:48 Freq: NEEDED Status: Active Protocol: Document 04/23/19 09:10 HH (Rec: 04/23/19 12:44 [id number]) PT-Bed Mobility Assessment Supine to Sit Supine to Sit Minimal Assistance,1 Person Assistance,Head of Bed Elevated,Bedrails Scooting Scooting to Edge of Bed Minimal Assistance PT-Transfer Assessment Sit to and From Stand Sit to and from Stand Contact Guard Assistance,1 Person Assistance,Use of Upper Extremities Equipment Transfer Assistive Device Gait Belt,Front Wheeled Walker Orthotic/Prosthetic Devices or Brace: No Transfers Transfer Destination Bed,Toilet Transfer Technique pt ambulated with FWW Transfer Ability Level of Assist Contact Guard Assistance,1 Person Assistance,Use of Upper Extremities Comments Mobility Comments Pt was up in bed with elevated HOB at 60 degrees. Pt refused to do log roll d/t pain but she has reclining chair that she is planning to sleep on at home. Pt did supine to sit at L side EOB with PT's assistance on pt's R NUTRITION INSTRUCTOR and bed pad. She was able scoot with verbal cues. She then stood up with CGA followed by gait training 1 loop of [facility] [place], operated [facility]. Pt returned to bathroom with spouse CGA and he did pericare with pt safely. Pt did toilet transfer safely with grab bar and spouse CGA. She then stood up after and amb back to chair. Call light was given and stool underneath her feet. Gait Assessment Gait Gait Assistance Required: Standby Assistance,Contact Guard Assist Distance (Feet) 160 Able to Maintain Weight Bearing Status Yes During Gait Assistive Devices Assistive Device Gait Belt,Front Wheeled Walker Orthotic/Prosthetic Devices or Brace: No Gait Deviations General Gait Pattern Antalgic,Decreased Stride Length,Decreased Feet Clearance Factors Limiting Gait Function Factors Limiting Gait Function Decreased Activity Tolerance, Decreased Strength,Limited Range of Motion,Pain Comments Gait Comments Pt ambulated from the room and into the hallway using FWW SBA to CGA at most. her pace was slow and she has reduced foot clearance bilaterally, but she was safe with FWW. Stair Climbing Assessment Comments Stair Climbing Comments Not assessed. Pt reports of weakness lfiitng her knees. PT-Balance Assessment Sitting Balance and Reactions Static Sitting Balance Ability Good Dynamic Sitting Balance Ability Good Standing Balance and Reactions Static Standing Balance Ability Fair Dynamic Standing Balance Ability Fair Device Used FWW M5 PT-IP Objective Assessments Start: 04/22/19 08:48 Freq: NEEDED Status: Active Protocol: Document 04/22/19 10:28 AW (Rec: 04/22/19 10:57 AW [id number]) Orientation Orientation/Cognition Level of Alertness Alert Orientation Name,Day of Week,Place, Situation Language Function Ability No Deficits Noted Safety Awareness Understands Safety Issues, Decreased Safety Awareness Memory Description No Deficits Noted Gross Range of Motion Upper Extremity ROM Assessment Bilaterally Impaired Impairments OA and carpal tunnel syndrome bilateral hands. Pt wears bilateral braces for support. Lower Extremity ROM Assessment Bilaterally Impaired Strength Upper Extremity Strength Assessment Bilaterally Impaired Shoulder 4-/5 Lower Extremity Strength Assessment Bilaterally Impaired Hip 3-/5 Knee 4-/5 Ankle 4+/5 Comments Strength Comments Pt unable to flex hips against gravity in seated position due to pain. Coordination Assessment Gross Coordination Gross Coordination WNL Sensation Assessment Sensation Gross Sensation WNL Comments Sensation Comments Mild impairment bilateral hands. No impairment noted B LE Muscle Tone Muscle Tone WNL Yes M6 PT-IP Treatment Start: 04/22/19 08:48 Freq: NEEDED Status: Active Protocol: Document 04/22/19 14:47 AW (Rec: 04/22/19 15:13 AW [id number]) Physical Therapy Treatment Education Education Provided Precautions,Weight Bearing Status,Safety Other Treatments Other Treatment Performed Reviewed spinal surgery precautions and cued pt occasionally to avoid looking over her shoulder to limit rotation. M7 PT-IP Assessment and Plan Start: 04/22/19 08:48 Freq: NEEDED Status: Active Protocol: Document 04/23/19 09:10 HH (Rec: 04/23/19 12:44 HH [id number]) PT Summary Assessment and Plan Summary Impairments Pain,ROM,Strength,Balance,Bed Mobility,Transfers,Gait, Activity Tolerance Assessment Summary Pt cont to progress with amb distance and assistance needed for transfer. Pt still has difficulty for bed mobility but she stated she will stay on her reclining chair if needed. Pt's spouse was very helpful and assisted pt during trasnfers and gait training. Dis with pt that she will have to demonstrates log roll with sposue assistance and 1 step climbing prior to be d.c home. Pt will benefit from home health therapy to improve mobility and strength. Dis with TAYLOR Miller at the end regarding pt's progress. Goals Bed Mobility Goal Standby Assistance Transfer Goal Standby Assistance,Front Wheeled Walker Gait Goal Standby Assistance,Front Wheel Walker Gait Distance 200 Other Goals up/down 1 step using FWW SBA Days to Meet Goals 10 Frequency of Treatment Frequency Of Treatment Twice a Day Treatment Plan Physical Therapy Treatment Plan Bed Mobility Training,Transfer Training,Gait Training, Therapeutic Exercise,Balance Retraining,Post Op Education, Discharge Planning,Hot or Cold Pack,Neuromuscular Re-ed, Manual Therapy Other Recommendations and Next Treatment bed mobility, gait training, Focus assess platform step if able, caregiver training Recommendations To Nursing Amount of Assist Needed 1 Person Assist Discharge Recommendations PT Discharge Recommendations Home with Assistance,Home Health Equipment Needed for Home Before FWW if discharging home Discharge
[2019-04-23] MEDS: dexAMETHasone 4 MG TABLET PO (13:59)
--- NOTE | 2019-04-23 14:21 | PT.IPTN ---
Current Diagnoses Other spondylosis with radiculopathy, lumbosacral region (04/21/19) Spinal stenosis, lumbar region without neurogenic claudication (04/21/19) Surgery Performed Operation Date: 04/21/19 11:15 Actual Procedures p L4-5, L5-S1 TLIF w/ posterior instrumentation - Kristen Duron MD Physical Therapy Treatment Note M2 PT-IP Current Condition Start: 04/22/19 08:48 Freq: NEEDED Status: Discharge Protocol: Document 04/22/19 10:28 AW (Rec: 04/22/19 10:57 AW [id number]) Physical Therapy Current Condition Current Condition Evaluation Date 04/22/19 Treatment Diagnosis s/p L4-5 L5-S1 TLIF Onset Date 04/21/19 Precautions Lumbar Precautions Log Roll,No Twisting,Limit Bending,Lifting Restriction of 10 lbs,Gait Belt above Incisional Area Weight Bearing Status Weight Bearing Status Full Weight Bearing M3 PT-IP Subjective Start: 04/22/19 08:48 Freq: NEEDED Status: Discharge Protocol: Document 04/23/19 13:55 SP (Rec: 04/23/19 16:47 SP [id number]) Subjective Physical Therapy Visit Type Type Treatment Note Visit Start Time 13:55 Visit Stop Time 14:21 Total Visit Minutes 26 Notes Spouse present and complete CGT log roll and step mgt with patient. Physical Therapy Visit Comments Patient Comments Pt agreeable to work with PT. Patient Goals 1 step mgt and go home with Therapy Pain Assessment Pain When Pain Assessed At Rest Pain Present Pain Present Pain Reported Location bilateral legs Intensity 4 Scale Used 4/10 at rest LB and 6/10 with mobility. Pain Behaviors Facial Grimacing,Holding Area, Moaning,Restlessness Pain Management Techniques Re-positioning,Timing of Activity with Medications M4 PT-IP Mobility and Gait Start: 04/22/19 08:48 Freq: NEEDED Status: Discharge Protocol: Document 04/23/19 13:55 SP (Rec: 04/23/19 16:47 SP [id number]) PT-Bed Mobility Assessment Rolling Type of Rolling Roll to Left Level of Assist Minimal Assistance,1 Person Assistance Supine to Sit Supine to Sit Minimal Assistance,1 Person Assistance,Bedrails Sit to Supine Sit to Supine Minimal Assistance,1 Person Assistance,Bedrails PT-Transfer Assessment Sit to and From Stand Sit to and from Stand Contact Guard Assistance,1 Person Assistance,Use of Upper Extremities Equipment Transfer Assistive Device Gait Belt,Front Wheeled Walker Orthotic/Prosthetic Devices or Brace: No Transfers Transfer Destination Bed,Wheelchair Transfer Ability Level of Assist Contact Guard Assistance,1 Person Assistance,Use of Upper Extremities Comments Mobility Comments Pt just layed down in bed just prior to PT arrival with administrative nursing supervisor, aide and in room when arrived. Pt was able to complete log roll to L using bed rail (HOB flat to assimulate bed at home but stated will be in the recliner for a while) Min A with support provided by for trunk transition and cuing for legs to EOB and push from bed to sit. Pt was ableto scoot to EOB and little assist of angled bed toward floor so can touch BLE on floor. donned gait belt and provided support CGA to stand and cuing provided to push from bed tostand and reaching back prior to sitting for self independence and slow descent . Pt was able to walk using FWW around end of bed to w/c in hallway CGA provided by . Pt was ableto complete sittting supine when returned from gait and stair mgt with supporte provided by of BLE into bed Min A and cuing by for shoulders stay with hips to log roll, patient reported LBP but tolerated. Pt request assist for repositioning legs bent for comfort LB declined pillows under her knees or bed repositioning. Pt was able to bridge to reposition pelvis in bed. Pt had all needs within reach and and friend in room when left. Gait Assessment Gait Gait Assistance Required: Standby Assistance,Contact Guard Assist Distance (Feet) 120 Able to Maintain Weight Bearing Status Yes During Gait Assistive Devices Assistive Device Gait Belt,Front Wheeled Walker Orthotic/Prosthetic Devices or Brace: No Gait Deviations General Gait Pattern Antalgic,Decreased Stride Length,Decreased Feet Clearance Factors Limiting Gait Function Factors Limiting Gait Function Decreased Activity Tolerance, Decreased Strength,Limited Range of Motion,Pain Comments Gait Comments Pt was able to ambulate room distance then longer distance in hallway after stair mgt with using fWW providing CGA to SBA. Stair Climbing Assessment Evaluation Level of Assist On Stairs Minimal Assistance,1 Person Assistance Devices Stair Climbing Assistive Devices Front Wheel Walker Technique/Endurance Stair Climbing Direction Ascend and Descend Stair Climbing Technique Step to Step Number of Steps Climbed 1 Stair Climbing Set # Repetitions (reps) 1 Comments Stair Climbing Comments Pt was able to complete 1 step mgt to assimulate 1 step to enter home using FWW step to gait with CGA- Min support provided by . No LOB. PT-Balance Assessment Sitting Balance and Reactions Static Sitting Balance Ability Good Dynamic Sitting Balance Ability Good Standing Balance and Reactions Static Standing Balance Ability Good Dynamic Standing Balance Ability Good Device Used FWW M5 PT-IP Objective Assessments Start: 04/22/19 08:48 Freq: NEEDED Status: Discharge Protocol: Document 04/22/19 10:28 AW (Rec: 04/22/19 10:57 AW [id number]) Orientation Orientation/Cognition Level of Alertness Alert Orientation Name,Day of Week,Place, Situation Language Function Ability No Deficits Noted Safety Awareness Understands Safety Issues, Decreased Safety Awareness Memory Description No Deficits Noted Gross Range of Motion Upper Extremity ROM Assessment Bilaterally Impaired Impairments OA and carpal tunnel syndrome bilateral hands. Pt wears bilateral braces for support. Lower Extremity ROM Assessment Bilaterally Impaired Strength Upper Extremity Strength Assessment Bilaterally Impaired Shoulder 4-/5 Lower Extremity Strength Assessment Bilaterally Impaired Hip 3-/5 Knee 4-/5 Ankle 4+/5 Comments Strength Comments Pt unable to flex hips against gravity in seated position due to pain. Coordination Assessment Gross Coordination Gross Coordination WNL Sensation Assessment Sensation Gross Sensation WNL Comments Sensation Comments Mild impairment bilateral hands. No impairment noted B LE Muscle Tone Muscle Tone WNL Yes M6 PT-IP Treatment Start: 04/22/19 08:48 Freq: NEEDED Status: Discharge Protocol: Document 04/23/19 13:55 SP (Rec: 04/23/19 16:47 SP [id number]) Physical Therapy Treatment Education Education Provided Precautions,Weight Bearing Status,Safety Other Treatments Other Treatment Performed REviewed spinal surgery precautions and cued for shoulders staying with hips during log roll and followed through with education. M7 PT-IP Assessment and Plan Start: 04/22/19 08:48 Freq: NEEDED Status: Discharge Protocol: Document 04/23/19 13:55 SP (Rec: 04/23/19 16:47 SP [id number]) PT Summary Assessment and Plan Potential Rehabilitation Potential Good Status of Condition at Evaluation Evolving Summary Impairments Pain,ROM,Strength,Balance,Bed Mobility,Transfers,Gait, Activity Tolerance Assessment Summary Pt cont to progress with amb distance and assistance needed for transfer. Pt still has difficulty for bed mobility but she stated she will stay on her reclining chair if needed. Pt's spouse was very helpful and assisted pt during trasnfers, gait and step training. Pt was able to complete log roll with with cuing for core activation to decrease LB recruitment. Pt will benefit from home health therapy to improve mobility and strength. Discussed with [facility] nurse at the end regarding pt's progress and recommending home health to progress strengthen and functional mobility. able to assist patient at home. Goals Bed Mobility Goal Standby Assistance Transfer Goal Standby Assistance,Front Wheeled Walker Gait Goal Standby Assistance,Front Wheel Walker Gait Distance 200 Other Goals up/down 1 step using FWW SBA Days to Meet Goals 10 Frequency of Treatment Frequency Of Treatment Twice a Day Treatment Plan Physical Therapy Treatment Plan Bed Mobility Training,Transfer Training,Gait Training, Therapeutic Exercise,Balance Retraining,Post Op Education, Discharge Planning,Hot or Cold Pack,Neuromuscular Re-ed, Manual Therapy Recommendations To Nursing Amount of Assist Needed 1 Person Assist Discharge Recommendations PT Discharge Recommendations Home with Assistance,Home Health Equipment Needed for Home Before FWW if discharging home Discharge
--- NOTE | 2019-05-09 14:46 | P.DS_ITS ---
History of Present Illness History of Present Illness Chief complaint: [id number] Narrative: Please see HPI previously recorded in the chart. Discharge Providers Provider Date of admission: 04/21/19 08:49 Discharge Date: 04/23/19 Primary care physician: Lisa Ramos Consults: 04/21/19 16:50 Consult to Occupational Therapy Evaluate & Treat Comment: Physician Instructions: Evaluate and treat Consult to Physical Therapy Evaluate & Treat Comment: Physician Instructions: Evaluate and Treat Discharge provider: Sophie Brumfield PA-C Summary Hospital Course Discharge Diagnosis: s/p TLIF Hospital Course: The patient is a 58 year old female who has been having chronic back pain and worsening lumbar radiculopathy.Patient failed multiple conservative management with worsening pain weakness and numbness in her lower extremity. Patient has been having difficulty performing activity of daily living. After discussing risks benefits of treatment options, patient elected proceed with surgery. Once informed consent was obtained she was taken to the operating room where she underwent a TLIF with Dr. Duron which she tolerated well without complications. Afterwards she was taken to the acute care floor where she progressed well post operatively. She initially had some issues with pain control and was requiring both PO and IV Dilaudid for adequate pain control. On POD#2 she as given 10mg IV Decadron and PO Decadron Q6hrs following with some improvement in pain going into the legs. She is slow to mobilize with physical therapy. She lives at home with her . She is voiding without difficulty or assistance. She was deemed medically stable for discharge. Status at Discharge Cognitive/behavioral status at discharge: oriented Functional status at discharge: uses cane/walker Overall status at discharge: patient is progressing back to baseline Exam Vital Signs (past 8 hours): Oxygen Delivery Method Nasal Cannula Oxygen Flow Rate 2 Narrative Exam Narrative: Patient lying in bed in no acute distress. She is alert oriented x3. Calves are soft, compressible, nontender bilaterally. Sensation intact light touch throughout bilateral lower extremities. She is able to actively dorsiflex plantar flex. Pulses are symmetrical. Objective Labs Result Diagrams: 04/22/19 05:40 Discharge Plan Discharge Plan Patient Disposition: Home Discharge orders & Medications Prescriptions: New hydromorphone 2 mg Tablet 2 mg PO Q4HR PRN (Reason: Pain, Moderate (4-6)) Qty: 60 RF: 0 dexamethasone 4 mg Tablet 4 mg PO Q6HR Qty: 2 RF: 0 docusate sodium [DOK] 100 mg Capsule 100 mg PO BID Qty: 60 RF: 0 hydroxyzine pamoate 25 mg Capsule 25 mg PO Q6HR Qty: 40 RF: 1 Continued fexofenadine [Yanet Allergy] 180 mg Tablet 180 mg PO DAILY PRN (Reason: Seasonal allergies) RF: 0 acetaminophen [Tylenol Arthritis Pain] 650 mg Tablet Extended Release 1,300 mg PO Q12H PRN (Reason: Pain) RF: 0 levothyroxine [Synthroid] 50 mcg Tablet 50 mcg PO DAILY RF: 0 docusate sodium [Col-Rite] 100 mg Capsule 100 mg PO TID PRN (Reason: Constipation) RF: 0 omeprazole 20 mg Capsule,Delayed Release(Dr/Ec) 20 mg PO DAILY RF: 0 azelastine 137 mcg (0.1 %) Aerosol,[place] 2 spray INTRANASAL BID PRN (Reason: Nasal Congestion) RF: 0 fluticasone propion-salmeterol [Advair Diskus] 100-50 mcg/dose Blister With Device 1 puff INHALATION BID PRN (Reason: Asthma) RF: 0 albuterol sulfate 90 mcg/actuation Hfa Aerosol Inhaler 2 puff INHALATION 6XD PRN (Reason: Shortness Of Breath) RF: 0 vitamin D3-vitamin K2 (MK4) RF: 0 Discontinued oxycodone 5 mg Tablet 10 mg PO Q6H PRN (Reason: Pain) RF: 0 Follow up/Referrals: Lisa Ramos [Primary Care Provider] - Krisetn Duron MD [Physician] - Skin/Wound/Dressing Care Report to your healthcare provider any signs of infection, such as:: chills, fever and increased pain Dressing: Leave in place until appointment Visit Report/Discharge Packet Instructions: DI for Transforaminal Lumbar Interbody Fusion Discharge Data Primary Care Provider: Lisa Ramos Discharges patient from system. Discharge Date/Time: 04/23/19 16:06
== END 2019-04-23 16:06 | disposition home or self-care (01) | DRG 454 ==
PROVIDERS: Admitting Provider Orthopaedic Surgery Orthopaedic Surgery of the Spine; PCP Internal Medicine; Visit Provider Orthopaedic Surgery Orthopaedic Surgery of the Spine
PROC: 0SG00AJ Fusion of Lumbar Vertebral Joint with Interbody Fusion Device, Posterior Approach, Anterior Column, Open Approach (ICD-10-PCS; principal; 2019-04-21 11:15)
DX: M48.061 Spinal stenosis, lumbar region without neurogenic claudication (principal); Z68.43 Body mass index [BMI] 50.0-59.9, adult; M47.27 Other spondylosis with radiculopathy, lumbosacral region; E66.01 Morbid (severe) obesity due to excess calories; J45.20 Mild intermittent asthma, uncomplicated; E03.9 Hypothyroidism, unspecified; M79.7 Fibromyalgia; M48.07 Spinal stenosis, lumbosacral region; M47.26 Other spondylosis with radiculopathy, lumbar region; G89.18 Other acute postprocedural pain
CPT/HCPCS: 36415; 72100; 76000; 85014; 85018; 94762; 97116; 97161; 97165; 97530; 97535; C1776; C9290; J0690; J1100; J1170; J2250; J2405; J2704; J3010; J3410

== ENCOUNTER → 2020-05-22 11:12 | Outpatient (CLI) | payer MEDICARE, OTHER, SELFPAY ==
[2019-04-21 18:44] VITALS: BMI 50.1
[2020-05-22 14:18] LABS: COVID19 -Nasal RAPID Negative (Negative)
== END ==
PROVIDERS: PCP Internal Medicine; Visit Provider Nurse Practitioner
DX: Z01.812 Encounter for preprocedural laboratory examination (principal); Z20.822 Contact with and (suspected) exposure to COVID-19
CPT/HCPCS: 87635

== ENCOUNTER 2020-05-24 10:56 | Inpatient (IN) | payer MEDICARE, OTHER, SELFPAY ==
[2019-04-21 18:44] VITALS: BMI 50.1
[2020-05-12 16:34] VITALS: BMI 49.1
[2020-05-24] VITALS (13 sets, daily range): BP systolic 109–148; BP diastolic 27–88; PULSE 60–83; RESP 15–22; TEMP 35.8–36.9; O2SAT 92–99; BMI 49.7
--- NOTE | 2020-05-24 06:00 | DI.RAD.S_ITS ---
PROCEDURE: XR SHOULDER LT 1V INDICATIONS: post op films TECHNIQUE: 1 views of the shoulder were acquired. COMPARISON: None. FINDINGS: Bones: Patient is status post left shoulder arthroplasty with anatomic alignment. Likely postsurgical widening at acromioclavicular joint is seen. No acute fracture or dislocation. No suspicious bony lesions. Visualized ribs appear intact. Soft tissues: No suspicious soft tissue calcifications. IMPRESSION: Postop changes from left shoulder arthroplasty with anatomic shoulder alignment. Dictated by: Clyde Ruelas M.D. on 05/24/2020 at 16:49 Approved by: Clyde Ruelas M.D. on 05/24/2020 at 16:50
[2020-05-24] MEDS: PREGABALIN 75 MG CAPSULE PO (12:04)
[2020-05-24] MEDS: MELOXICAM 7.5 MG TABLET 15 MG PO (12:07)
--- NOTE | 2020-05-24 12:07 | PM.PREOP ---
Pre-operative Note COVID-19 COVID-19 status: Negative Result date/Date tested (Pos, Neg/Pending): 05/22/20 Interval Note History & Physical reviewed/Exam performed by Physician: Yes Changes to H&P: No
[2020-05-24] MEDS: LACTATED RINGERS 1,000 ML 42 ML IV ×2 (12:09→14:39)
[2020-05-24] MEDS: MIDAZOLAM 2 MG/2 ML VIAL IV (12:44)
[2020-05-24] MEDS: fentaNYL 100 MCG/2 ML INJ 50 MCG IV (12:45)
[2020-05-24] MEDS: CEFAZOLIN VIAL 3 GM in SODIUM CHLORIDE 0.9% 100 ML 200 ML IV (12:56)
--- NOTE | 2020-05-24 13:06 | SUR.PREOP ---
1245-Pt placed on O2 at 2L per NC, all vitals monitored throughout block with Dr Camacho, pt remained stable, 2mg Versed given IV at start with 50mcg of Fentanyl iv, pt comfortable throughout block. Start block time at 1247, end time 1251. Pt awake and talking after procedure and OR nurse here to take pt to OR.
[2020-05-24] MEDS: TRANEXAMIC ACID 1,000 MG VIAL 1000 MG INJ ×2 (13:15→14:38)
--- NOTE | 2020-05-24 13:36 | SUR.OPER ---
Beach chair with Schlein shoulder positioner. Lower body on padded OR bed. Head in foam padded head cradle, secured with straps. Non-operative arm secured <90 degrees abduction. Pillow under knees. Safety belt at thigh. Cloth tape over blanket over lower legs.
[2020-05-24] MEDS: BUPIVACAINE 0.5% W/ EPI (PF) 30 ML VIAL INJ (13:41)
[2020-05-24] MEDS: THROMBIN (RECOMBINANT) 5,000 UNIT VIAL 5000 UNIT TOP (13:42)
--- NOTE | 2020-05-24 15:09 | PM.OP.1 ---
Operative Date/Time/Diagnoses Date of procedure: 05/24/20 Time of procedure: 15:09 Pre-op diagnosis: Left shoulder osteoarthritis Post-op diagnosis: same Procedure & Clinicians Procedure: Left total shoulder replacement Same procedure as scheduled: Yes Indications: The patient has had progressively worsening left shoulder pain with radiographic changes consistent with arthritis. Non-operative management has failed and the patient has requested total shoulder replacement. The risks, benefits and alternatives to surgery were discussed with the patient prior to proceeding. Risks discussed included, but were not limited to, failure to relieve pain, stiffness, infection, nerve damage, deep venous thrombosis, pulmonary embolism, stroke, coma, heart attack, permanent paralysis and , as well as the potential need for eventual revision of the prosthetic. Surgeon: Geovany Garzon Unemployment Insurance Director: Duke Martinez Click Yes if Unassisted: No Anesthesia Type: General, Peripheral nerve block and Local Operative Notes Findings: Significant osteoarthritis of the left shoulder with small inferior osteophyte Closure Type: primary Specimen(s): none sent Prosthetic devices, grafts, tissues, transplants, or devices: Implants used in this procedure were manufactured by the [employer] and included an all polyethylene E +46 mm pegged glenoid, a 46 mm x 18 mm diameter neutral humeral head and a size 2 canal sparing humeral stem and neck kit. In addition, an Arthrex Speedbridge set with 4 Swivelock anchors was used. Applied: implant(s) Estimated Blood Loss (mL): 200 Blood products transfused: none Procedure in detail: The patient was seen in the pre-operative area, where the patient identified the left shoulder as the operative site and this was marked with my initials. The patient received pre-operative antibiotics, underwent an interscalene block, and was taken to the operating room and placed on the operative table in the supine position. After satisfactory anesthesia, a full ?time out? was performed. The patient was repositioned in the ?beach chair? position using a dedicated positioner. All pressure points were well padded, and the knees were slightly bent to prevent tension on the sciatic nerves. The left arm was prepared from the fingers to the base of the neck with ChloroPrep in the usual fashion and draped through sterile drapes. An approximately 15 cm incision was created, starting at the clavicle above the coracoid process and extended towards the deltoid insertion. The deltopectoral interval was used to access the shoulder. The cephalic vein was taken medially. A self retaining retractor was placed. The upper centimeter of the pectoralis major tendon was released. The ?three sisters? were identified and cauterized. The axillary nerve was palpated and protected throughout the case. The biceps was released from its groove and tenodesed over the top of the pectoralis major tendon. The subscapularis was released from the lesser tuberosity with a subscapularis peel and tagged for later repair. The shoulder was dislocated and a cutting guide was used for the proximal humeral osteotomy in 30 degrees of retroversion. The humeral head was sized. The guide pin was placed in the central axis of the osteotomy site. The proximal planer was used followed by the collar planer. We checked the sizes of the canal sparing stems in a size 2 was chosen. The trial broach was impacted into position. A proximal humeral protector was then placed. We then removed the self-retaining retractor and placed retractors to access the glenoid. The subscapularis was released with a ?360 degree release? with care being taken to protect the axillary nerve with the inferior portion of this procedure. The remnant of labrum and biceps stump were removed. The appropriate size reamer was chosen with the glenoid sizer, and the guide pin placed. The glenoid was appropriately reamed. The guide for the peripheral holes was used and the center hole enlarged. The trial glenoid was placed with good stability. We then cemented the final implant into place after irrigating the peg holes and drying them with thrombin-soaked Gelfoam. We returned our attention to the humerus, a trial humeral head was applied and a trial reduction performed. Stability was checked with 50% posterior translation with spontaneous reduction, 45? external rotation at the side with the subscapularis held in the repaired position and 70? internal rotation in the ?scarecrow position?. This was felt to be satisfactory and the appropriate implants were opened. The humeral stem prosthetic was impacted into the humerus. The humeral head was applied when the stem was still slightly proud and impacted to both seat the head and fully seat the stem. The joint was relocated one final time and extensively irrigated. The subscapularis repaired using a a ?speed bridge technique? with 4 [employer] Swivelock anchors. The top of the subscapularis was closed to the leading edge of the supraspinatus with a figure of 8 #2 TiCron to close the rotator interval. The deltopectoral interval was closed with interrupted 0 Vicryl. The subcutaneous layer was closed with 3-0 Vicryl, and the skin with a running 3-0 V-Lock suture and Dermabond. An Aquacel Ag dressing was applied, the patient?s arm was placed in a sling, and the patient was taken to recovery having tolerated the procedure well. Complications: none Post-operative Condition: stable Disposition: PACU Plan for aftercare: The patient will be maintained on a standard total shoulder replacement protocol with passive range of motion limited to 90 degrees forward flexion, 0 degrees external rotation at the side, 0 degrees abduction and internal rotation to the body. The patient will receive aspirin and sequential compression devices for DVT prophylaxis. The patient will be discharged home when safe for the home environment, likely tomorrow.
--- NOTE | 2020-05-24 15:17 | SUR.PHASEI ---
Pt arrived, patent airway, awake. Denied pain, taking ice chips well, xrDr. gudelia yeboah to bedside, checked on pt, explained pain meds.
--- NOTE | 2020-05-24 15:20 | SUR.PHASEI ---
Report to Lorri
[2020-05-24] MEDS: OXYCODONE/ACETAMINOPHEN 5/325 TABLET 1 TAB PO (15:28)
--- NOTE | 2020-05-24 15:37 | SUR.PHASEI ---
Report to Levon CALLAHAN
[2020-05-24] MEDS: LACTATED RINGERS 1,000 ML 100 ML IV (16:39)
[2020-05-24] MEDS: ACETAMINOPHEN 325 MG TABLET 650 MG PO ×2 (16:39→21:45)
[2020-05-24] MEDS: ASPIRIN EC 81 MG TABLET PO (21:45)
[2020-05-24] MEDS: PREGABALIN 50 MG CAPSULE 100 MG PO (21:45)
[2020-05-24] MEDS: DOCUSATE 100 MG CAPSULE PO (21:45)
[2020-05-25 00:30] VITALS: BP 121/76; PULSE 70; RESP 18; TEMP 36.2; O2SAT 97
[2020-05-25] MEDS: OXYCODONE IR 10 MG TABLET 20 MG PO (00:53)
[2020-05-25] MEDS: HYDROMORPHONE 0.5 MG INJ 0.2 MG IV (02:03)
[2020-05-25 04:30] VITALS: BP 102/70; PULSE 71; RESP 18; TEMP 36.3; O2SAT 92
[2020-05-25 06:00] LABS: Hematocrit 40.1 % (36-46); Hemoglobin 13.2 g/dL (12.0-16.0)
[2020-05-25] MEDS: LEVOTHYROXINE 50 MCG TABLET PO (06:13)
[2020-05-25] MEDS: PANTOPRAZOLE 20 MG TABLET PO (06:13)
[2020-05-25 07:45] VITALS: BP 110/65; PULSE 73; RESP 16; TEMP 36.7; O2SAT 92
--- NOTE | 2020-05-25 07:53 | PM.DS.1 ---
History of Present Illness History of Present Illness Date Patient Seen: 05/25/20 Time Patient Seen: 07:53 Chief complaint: INPT Narrative: The history and physical is contained in the chart and her previously completed note. Please refer to that note for this information. Discharge Providers Provider Date of admission: 05/24/20 10:56 Discharge Date: 05/25/20 Primary care physician: Lisa Ramos MD Consults: 05/24/20 15:50 Consult to Discharge Planning Routine Comment: Consult to Physical Therapy Evaluate & Treat Comment: Physician Instructions: PROM 90 FF, 0 ER, 0 ABD, IR to body. Pendulums Consult to Respiratory Therapy Evaluate & Treat Comment: Physician Instructions: Evaluate and treat Discharge provider: Geovany Garzon MD Summary Hospital Course Discharge Diagnosis: 1. Left shoulder osteoarthritis Hospital Course: The patient was admitted to the hospital and taken directly to the operating room on May 24, 2020. She went a left total shoulder replacement without complications. On postoperative day 1 she remained comfortable although the block was still partially in place. She had been able to get up to go to the bathroom several times overnight. Status at Discharge Cognitive/behavioral status at discharge: oriented Functional status at discharge: independent ambulation Overall status at discharge: patient is progressing back to baseline Time Spent with Patient Time spent: Less than 30 minutes Exam Vital Signs (past 8 hours): - 05/25/20 00:30 05/25/20 04:30 Temperature 97.2 F L 97.4 F L Pulse Rate 70 71 Respiratory Rate 18 18 Blood Pressure 121/76 102/70 Pulse Oximetry 97 92 Oxygen Delivery Method Room Air Oxygen Flow Rate 0 Narrative Exam Narrative: Dressing is intact on the left shoulder with no drainage. Light touch is reduced but present in the radial, ulnar, median, muscular cutaneous and axillary nerve distribution. She has difficulty moving the muscles of her hand but she does demonstrate the ability to flex her elbow and abduct her shoulder slightly. Objective Labs Result Diagrams: 05/25/20 05:48 Labs: Laboratory Results - last 24 hr 05/25/20 05:48 Hgb 13.2 Hct 40.1 PFSH Medical History (Updated 05/19/20 @ 13:19 by Suzanna Montanez RN) Asthma Chronic pain COPD (chronic obstructive pulmonary disease) Fibromyalgia Former smoker GERD (gastroesophageal reflux disease) Hearing impaired person Hearing loss History of sprain of knee Hypothyroidism Meningitis spinal Morbid obesity due to excess calories Obesity Obesity, morbid, BMI 50 or higher Osteoarthritis Pneumonia (~04/2016) Primary osteoarthritis, left shoulder Sciatica Shoulder pain, left Surgical History (Updated 05/20/20 @ 07:24 by [employer] [facility]) H/O: hysterectomy History of back surgery History of bilateral carpal tunnel release History of left oophorectomy History of tonsillectomy and adenoidectomy Hx of arthroscopy of left knee Hx of partial thyroidectomy S/P epidural steroid injection Social History household members: spouse Smoking Status: Former smoker alcohol intake: current Discharge Assessment & Plan Assessment and Plan Assessment: Doing well postoperative day 1 status post left total shoulder replacement. Her block is still partially in place. Plan of Treatment: Discharge to home today with follow-up in 10-14 days. She will have outpatient physical therapy starting in about 2 weeks. A prescription for hydromorphone has been called in to her pharmacy for pain relief. She has been instructed in the use of Tylenol for pain relief and in the use of aspirin for DVT prophylaxis. Discharge Plan Discharge Plan Patient Disposition: Home Discharge orders & Medications Prescriptions: New aspirin 81 mg Tablet,Delayed Release (Dr/Ec) 81 mg PO BID 42 Days Qty: 84 RF: 0 hydromorphone 2 mg Tablet 2 mg PO Q3H PRN (Reason: Pain, Severe (7-10)) Qty: 50 RF: 0 Continued pregabalin [Lyrica] 100 mg Capsule 100 mg PO BID RF: 0 oxycodone 5 mg Tablet 15 mg PO SEEINSTR RF: 0 fexofenadine [Yanet Allergy] 180 mg Tablet 180 mg PO DAILY PRN (Reason: Seasonal allergies) RF: 0 acetaminophen [Tylenol Arthritis Pain] 650 mg Tablet Extended Release 1,300 mg PO Q12H PRN (Reason: Pain) RF: 0 levothyroxine [Synthroid] 50 mcg Tablet 50 mcg PO DAILY RF: 0 docusate sodium [Col-Rite] 100 mg Capsule 100 - 300 mg PO TID PRN (Reason: Constipation) RF: 0 omeprazole 20 mg Capsule,Delayed Release(Dr/Ec) 20 mg PO DAILY RF: 0 azelastine 137 mcg (0.1 %) Aerosol,[place] 2 spray INTRANASAL BID PRN (Reason: Nasal Congestion) RF: 0 fluticasone propion-salmeterol [Advair Diskus] 100-50 mcg/dose Blister With Device 1 puff INHALATION BID PRN (Reason: Asthma) RF: 0 albuterol sulfate 90 mcg/actuation Hfa Aerosol Inhaler 2 puff INHALATION 6XD PRN (Reason: Shortness Of Breath) RF: 0 vitamin D3-vitamin K2 5,500-200 unit-mcg Tablet 1 tab PO DAILY Qty: 0 RF: 0 Follow up/Referrals: Lisa Ramos MD [Primary Care Provider] - Geovany Garzon MD [Physician] - 2 Weeks Discharge Health Status Multidrug resistant organism: No MDRO Diet/Activity/Treatments Diet: Diet as Tolerated and Regular Activity: You may use your left hand in front of your body below shoulder level. Cold/Heat Therapy: You may apply ice for 15 minutes every hour as needed to the left shoulder for pain control. Other treatments: You may find it more comfortable to sleep in a recliner or with several pillows to lift your head and shoulders. Skin/Wound/Dressing Care Report to your healthcare provider any signs of infection, such as:: chills, fever, night sweats, increased pain, unusual drainage and unusual redness Dressing: Leave the dressing in place until follow-up. You may shower with the dressing in place. If the central strip of the dressing becomes saturated with either water or blood, please call the office to have it evaluated. Visit Report/Discharge Packet Instructions: DI for Prescription Opioid Use, DI for Shoulder Replacement Stand Alone Forms: Surgery Discharge Discharge Data Primary Care Provider: Lisa Ramos
[2020-05-25 08:50] VITALS: O2SAT 94
[2020-05-25] MEDS: DOCUSATE 100 MG CAPSULE PO (09:49)
[2020-05-25] MEDS: ASPIRIN EC 81 MG TABLET PO (09:49)
[2020-05-25] MEDS: HYDROMORPHONE 2 MG TABLET PO (09:49)
[2020-05-25] MEDS: ACETAMINOPHEN 325 MG TABLET 650 MG PO (09:50)
[2020-05-25] MEDS: PREGABALIN 50 MG CAPSULE 100 MG PO (09:50)
--- NOTE | 2020-05-25 10:20 | PT.IIE ---
Current Diagnoses Primary osteoarthritis, right shoulder (05/24/20) Surgery Performed Operation Date: 05/24/20 13:15 Actual Procedures p Total Shoulder Arthroplasty(Left) - Geovany Garzon MD Surgical History (Last Updated 05/19/20 @ 12:36 by Suzanna Montanez, RN) H/O: hysterectomy History of back surgery History of bilateral carpal tunnel release History of left oophorectomy History of tonsillectomy and adenoidectomy Hx of arthroscopy of left knee Hx of partial thyroidectomy S/P epidural steroid injection Medical History (Last Updated 05/19/20 @ 13:19 by Suzanna Montanez, RN) Asthma Chronic pain COPD (chronic obstructive pulmonary disease) Fibromyalgia Former smoker GERD (gastroesophageal reflux disease) Hearing impaired person Hearing loss History of sprain of knee Hypothyroidism Meningitis spinal Morbid obesity due to excess calories Obesity Obesity, morbid, BMI 50 or higher Osteoarthritis Pneumonia (~04/2016) Primary osteoarthritis, left shoulder Sciatica Shoulder pain, left Physical Therapy Inpatient Evaluation/Re-Eval M1 PT/OT-IP Prior Functional Status Start: 05/25/20 08:55 Freq: NEEDED Status: Active Protocol: Document 05/25/20 10:20 AW (Rec: 05/25/20 10:52 AW [id number]) Medical Review Prior Functional Status Medical History Reviewed Yes Diet/Fluid Consistency [place] Thick Communication Pt is KOI and typically depends on her for lip reading assistance. She is expressively verbal WNL. Mobility and Gait Pt reports independent ambulation without device. Activities of Daily Living and IADL's Pt has her provide SBA for showers and occasional assist with shoes and socks though she mostly wears sturdy sandals she can slip on. She is otherwise independent. does most housework. Pt is an active yard truck driver. Prior Functional Level (Other details) Pt is right-handed. Social History Household Members spouse Living Arrangements House Number of Floors (Floors) One Floor Number of Stairs To Enter/Railing? 1 JAVED through the garage where she can hang on to the door frame. Home Environment Standard Height Toilet,Walk in Shower,Built-In Shower Seat Home Equipment Front Wheel Walker,Straight Cane,Raised Toilet Seat w/ Armrests,Grab Bars Near Toilet ,Grab Bars In Shower Additional Social History Comment Pt states she plans to sleep in her recliner when she goes home. Pt and her are retired. Spouse will be available and able to assist as needed. M2 PT-IP Current Condition Start: 05/25/20 08:55 Freq: NEEDED Status: Active Protocol: Document 05/25/20 10:20 AW (Rec: 05/25/20 10:52 AW [id number]) Physical Therapy Current Condition Current Condition Evaluation Date 05/25/20 Treatment Diagnosis L TSA; decreased independence with ADL's; difficulty in walking Onset Date 05/25/20 Precautions Shoulder Precautions Sling,PROM,Internal Rotation to Body,No External Rotation, No Abduction,Forward Flexion to 90 degrees,Pendulums Brace soft sling applied for all mobility Weight Bearing Status Weight Bearing Status Non-Weight Bearing Allowed Weight Bearing Amount (enter % NWB LUE or #) (%) M3 PT-IP Subjective Start: 05/25/20 08:55 Freq: NEEDED Status: Active Protocol: Document 05/25/20 10:20 AW (Rec: 05/25/20 10:52 AW [id number]) Subjective Physical Therapy Visit Type Type Initial Evaluation Visit Start Time 09:55 Visit Stop Time 10:20 Total Visit Minutes 25 Notes is available to assist with communication and participate in caregiver training. Number of SUMMER ANALYST Visits 0 Physical Therapy Visit Comments Patient Comments Pt is willing to participate with PT Patient Goals Return home MARK Therapy Pain Assessment Pain When Pain Assessed During Mobility Pain Present Pain Present Pain Reported Location shoulder Scale Used not quantified Pain Management Techniques Apply Cold,Timing of Activity with Medications M4 PT-IP Mobility and Gait Start: 05/25/20 08:55 Freq: NEEDED Status: Active Protocol: Document 05/25/20 10:20 AW (Rec: 05/25/20 10:52 AW [id number]) PT-Transfer Assessment Sit to and From Stand Sit to and from Stand Standby Assistance Equipment Transfer Assistive Device Gait Belt Orthotic/Prosthetic Devices or Brace: Yes Transfers Transfer Destination Bed Transfer Technique Stand Step Pivot Transfer Ability Level of Assist Standby Assistance Comments Mobility Comments Pt was sitting on the edge of the bed with ill-fitting sling applied as PT arrived. She completed sit to stand SBA and ambulated to the sink CGA. PT attempted to adjust the sling but determined it was too small for proper fit. Pt sat EOB again as PT left to acquire XL sling. PT then fit and adjusted the larger sling with pt reporting improved support and comfort. Pt sat EOB again. PT and pt's spouse provided assist and instruction on dressing for pt to don shirt, skirt, and shoes. Pt then ambulated around the unit and was noted to frequently reach for the railing on the right side as PT and then spouse provided CGA. She completed stair training and then returned to the room, transferring back to EOB. Gait Assessment Gait Gait Assistance Required: Standby Assistance,Contact Guard Assist Distance (Feet) 200 Able to Maintain Weight Bearing Status Yes During Gait Assistive Devices Assistive Device Gait Belt Orthotic/Prosthetic Devices or Brace: Yes Gait Deviations General Gait Pattern Antalgic,Decreased Stride Length,Decreased Feet Clearance,Lateral Trunk Lean, Wide Based Gait Factors Limiting Gait Function Factors Limiting Gait Function Decreased Sensation,Decreased Strength,Limited Range of Motion,Pain,Poor Balance,Poor Safety Awareness Comments Gait Comments Pt was slightly impulsive and unsteady, reaching for the right-side railing in the hallway frequently. Pt's spouse was able to provide appropriate level of safe assist. Stair Climbing Assessment Evaluation Level of Assist On Stairs Contact Guard Assistance Devices Stair Climbing Assistive Devices Right Railing Technique/Endurance Stair Climbing Direction Ascend and Descend Stair Climbing Technique Step to Step Number of Steps Climbed 3 Query Text: Stair Climbing Set # Repetitions (reps) 1 PT-Balance Assessment Sitting Balance and Reactions Static Sitting Balance Ability Good Dynamic Sitting Balance Ability Good Standing Balance and Reactions Static Standing Balance Ability Good Dynamic Standing Balance Ability Fair Device Used CGA M5 PT-IP Objective Assessments Start: 05/25/20 08:55 Freq: NEEDED Status: Active Protocol: Document 05/25/20 10:20 AW (Rec: 05/25/20 10:52 AW [id number]) Orientation Orientation/Cognition Level of Alertness Alert Orientation Name,Day of Week,Place, Situation Language Function Ability Hard of Hearing Safety Awareness Decreased Safety Awareness Gross Range of Motion Upper Extremity ROM Assessment Left Impaired Lower Extremity ROM Assessment Within Functional Limits Strength Upper Extremity Strength Assessment Left Impaired Lower Extremity Strength Assessment Bilaterally Impaired Hip 4-/5 Knee 4/5 Sensation Assessment Sensation Gross Sensation Left UE Impaired Light Touch Impaired Sensation Description Numbness Comments Sensation Comments Pt still numb distally with some returning sensation reported in proximal upper arm /musculocutaneous distribution . Muscle Tone Muscle Tone WNL Yes M6 PT-IP Treatment Start: 05/25/20 08:55 Freq: NEEDED Status: Active Protocol: Document 05/25/20 10:20 AW (Rec: 05/25/20 10:52 AW [id number]) Physical Therapy Treatment Exercises Exercises Elbow Flexion/Extension,Wrist ROM,Hand ROM Education Education Provided Precautions,Safety Brace Education [place],Patient, Caregiver Equipment Issued Equipment Type and Company XL soft sling from [facility] provided due to L from OR being too small Other Treatments Other Treatment Performed Educated pt and her spouse on PT plan of care, post-op precautions, and how to assist with mobility and ADL's. M7 PT-IP Assessment and Plan Start: 05/25/20 08:55 Freq: NEEDED Status: Active Protocol: Document 05/25/20 10:20 AW (Rec: 05/25/20 10:52 AW [id number]) PT Summary Assessment and Plan Potential Rehabilitation Potential Good Status of Condition at Evaluation Evolving Summary Impairments Pain,ROM,Strength,Balance, Sensation,Transfers,Gait Assessment Summary Alyssa is a 59 yo woman seen for PT evaluation on POD1 following L TSA. She is right- handed and independently mobile at baseline. On evaluation, pt required SBA for transfers and SBA to [facility] for ambulation without assistive device. She is still numb in all but the musculocutaneous distribution. Her sling from OR was too small so PT provided a size up with pt reporting improved support and comfort. Pt and her spouse had a good grasp of post-op precautions and spouse was able to provide a safe and appropriate level of assist. Pt is safe to discharge home once medically cleared. Frequency of Treatment Frequency Of Treatment Discharge Recommendations To Nursing Amount of Assist Needed Standby Assistance Discharge Recommendations PT Discharge Recommendations Home with Assistance, Outpatient PT Transportation Needs at Discharge Private Vehicle
--- NOTE | 2020-05-25 11:01 | PC.NURSE ---
Discussed discharge instructions with Pt and S.O. Pt states understanding and is agreeable to discharge, discussed instructions and wound care. Reiterated appointment schedule. Pt's belongings accounted for and packed. Pt escorted to car. Pt in care of family.
--- NOTE | 2020-05-25 11:03 | CM.DANOTE ---
DCP: Case received, EMR reviewed and met with patient. Introduced self and role. Was able to obtain some information from patient regarding her baseline activity status prior to her having surgery. DCP assessment completed with information currently available. Patient is a 59 year old female who admitted yesterday morning to the care of the orthopedic team. PCP: Dr. Ramos. Payer: confirmed: Medicare/[employer]. Patient came to the hospital via private vehicle for a surgical procedure. She had left shoulder arthroplasty. Patient has history of osteoarthritis of her shoulder. Patient also has a hearing deficit, so she needs to be able to visualize lip moving to be able to understand. Met with patient in her room. She was laying in bed, her arm in a sling. 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 Confirmed that she is independent at baseline, resides in [place], and confirmed, she has the support of her spouse to help her when she goes home. She was frustrated that she could not get up on her own to use the bathroom, and that she had to wait for somebody. P: Patient is to be discharged home today, with support. She will also be working with P.T. today. Dianna Lizarraga RN/Beef Pusher
== END 2020-05-25 10:45 | disposition home or self-care (01) | DRG 483 ==
PROVIDERS: Admitting Provider Orthopaedic Surgery; PCP Internal Medicine; Referring Provider Orthopaedic Surgery; Visit Provider Orthopaedic Surgery
PROC: 0RRK0JZ Replacement of Left Shoulder Joint with Synthetic Substitute, Open Approach (ICD-10-PCS; CPT 23472; principal; 2020-05-24 13:15)
DX: M19.012 Primary osteoarthritis, left shoulder (principal); Z68.42 Body mass index [BMI] 45.0-49.9, adult; E03.9 Hypothyroidism, unspecified; J45.909 Unspecified asthma, uncomplicated; E66.01 Morbid (severe) obesity due to excess calories; J44.9 Chronic obstructive pulmonary disease, unspecified; H91.93 Unspecified hearing loss, bilateral; Z20.822 Contact with and (suspected) exposure to COVID-19; G89.29 Other chronic pain; K21.9 Gastro-esophageal reflux disease without esophagitis
CPT/HCPCS: 36415; 64450; 73020; 85014; 85018; 87635; 94760; 97161; C1776; C9803; A9270; J0330; J0690; J1100; J1170; J2250; J2405; J2704; J3010